=== PATIENT | male | born 1985 | race Caucasian/White ===

== ENCOUNTER 2017-12-16 01:04 | Inpatient (IN) | payer SELFPAY ==
[2017-12-16] MEDS ORDERED: NORMAL SALINE 1000 ML 1,000 ML IV PRN (01:26)
[2017-12-16] MEDS ORDERED: MIDAZOLAM 2 MG/2 ML INJ IV ONE (01:26)
[2017-12-16] MEDS ORDERED: HALOPERIDOL LACTATE INJ 5 MG/1 ML VIAL IM ONE (01:27)
[2017-12-16] MEDS ORDERED: LORAZEPAM INJ 2 MG/1 ML VIAL IV ONE ×2 (01:27→01:47)
[2017-12-16] MEDS ORDERED: DIPHENHYDRAMINE HCL 50 MG/ML VIAL IV ONE (01:27)
[2017-12-16] MEDS ORDERED: ETOMIDATE INJ/PF 20 MG/10 ML SDV IV ONE (01:29)
[2017-12-16 01:32] LABS: ABSOLUTE BASOPHILS # (AUTO) 0.1 10^3/uL (0.0-0.2); ABSOLUTE EOSINOPHILS # (AUTO) 0.1 10^3/uL (0.0-0.6); ABSOLUTE LYMPHOCYTES (AUTO) 2.7 10^3/uL (0.5-4.7); ABSOLUTE MONOCYTES (AUTO) 0.5 10^3/uL (0.1-1.4); BASOPHILS % (AUTO) 0.9 % (0-2); EOSINOPHILS % (AUTO) 0.6 % (0-6); HEMATOCRIT 45.3 % (37.9-51.0); HEMOGLOBIN 15.6 g/dL (13.5-17.0); LYMPHOCYTES % (AUTO) 32.7 % (13-45); MEAN CORPUSCULAR HEMOGLOBIN 31.7 pg (27.0-33.4); MEAN CORPUSCULAR HGB CONC 34.4 g/dL (32.0-36.0); MEAN CORPUSCULAR VOLUME 92 fl (80-97); MONOCYTES % (AUTO) 6.5 % (3-13); PLATELET COUNT 246 10^3/uL (150-450); RED BLOOD COUNT 4.91 10^6/uL (4.35-5.55); SEGMENTED NEUTROPHILS % (AUTO) 59.3 % (42-78); TOTAL CELLS COUNTED % (AUTO) 100 %; WHITE BLOOD COUNT 8.4 10^3/uL (4.0-10.5)
[2017-12-16] MEDS ORDERED: PROPOFOL 1,000 MG/100 ML INFUS..BTL IV PRN (01:36)
[2017-12-16] MEDS ORDERED: PROPOFOL 1,000 MG/100 ML INFUS..BTL IV ONE (01:41)
[2017-12-16 01:57] LABS: ALANINE AMINOTRANSFERASE 82 U/L (21-72); ALBUMIN 4.6 g/dL (3.5-5.0); ALCOHOL 64 mg/dL (NONE DETECTED); ALKALINE PHOSPHATASE 56 U/L (38-126); ANION GAP 16 (5-19); ASPARTATE AMINO TRANSFERASE 63 U/L (17-59); BILIRUBIN,DIRECT 0.3 mg/dL (0.0-0.4); BILIRUBIN,TOTAL 0.3 mg/dL (0.2-1.3); BLOOD UREA NITROGEN 16 mg/dL (7-20); CALCIUM 9.4 mg/dL (8.4-10.2); CARBON DIOXIDE 22 mmol/L (22-30); CHLORIDE 111 mmol/L (98-107); GLUCOSE 159 mg/dL (75-110); POTASSIUM 3.9 mmol/L (3.6-5.0); SODIUM 149.3 mmol/L (137-145); TOTAL PROTEIN 8.3 g/dL (6.3-8.2)
[2017-12-16 01:59] LABS: ACETAMINOPHEN < 10 ug/mL (10-30); SALICYLATE < 1.0 mg/dL (2.0-20.0)
[2017-12-16 02:04] LABS: ARTERIAL BLOOD BASE EXCESS -24.2 mmol/L; ARTERIAL BLOOD H2CO3 1.96 mmol/L (1.05-1.35); ARTERIAL BLOOD HCO3 10.9 mmol/L (20-26); ARTERIAL BLOOD O2 SATURATION 95.7 % (94-98); ARTERIAL BLOOD PCO2 65.1 mmHg (35-45); ARTERIAL BLOOD TOTAL CO2 12.9 mmol/L (23-27)
[2017-12-16 02:13] LABS: ARTERIAL BLOOD FIO2 40%
[2017-12-16 02:14] LABS: ARTERIAL BLOOD PH 6.84 (7.35-7.45)
[2017-12-16] MEDS ORDERED: SODIUM BICARBONATE 8.4% INJ 50 MEQ/50 ML DISP.SYRIN IV ONE (02:18)
[2017-12-16] MEDS ORDERED: RINGERS SOLUTION,LACTATED 1,000 ML IV ONE (02:19)
[2017-12-16] MEDS ORDERED: DEXTROSE 5%-WATER 1000 ML 1,000 ML with SODIUM BICARBONATE 150 MEQ IV PRN ×2 (02:19)
--- NOTE | 2017-12-16 02:19 | RADIOLOGY REPORT (SQ) ---
EXAM DESCRIPTION: XR CHEST 1 VIEW COMPLETED DATE/TME: 12/16/2017 01:35 CLINICAL HISTORY: 32 years Male, ams COMPARISON: None. NUMBER OF VIEWS/TECHNIQUE: 1/AP FINDINGS: Adequate lung volume, clear parenchyma, normal cardiac silhouette, endotracheal tube tip is 6.2 cm from the monie, likely adequate enteric tube obscured at its tip, and intact bony thorax. IMPRESSION: No acute cardiopulmonary findings.
--- NOTE | 2017-12-16 02:21 | RADIOLOGY REPORT (SQ) ---
EXAM DESCRIPTION: CT HEAD WITHOUT IV CONTRAST COMPLETED DATE/TME: 12/16/2017 01:35 CLINICAL HISTORY: 32 years Male, ams COMPARISON: None. TECHNIQUE: No contrast. Coronal and sagittal reformat. This exam was performed according to our departmental dose-optimization program, which includes automated exposure control, adjustment of the mA and/or kV according to patient size and/or use of iterative reconstruction technique. FINDINGS: No hemorrhage or infarct. No mass, mass effect, or midline shift. Endotracheal and enteric tubes partially imaged. Brain and extra-axial structures appear otherwise intact. IMPRESSION: No acute findings.
[2017-12-16 02:49] LABS: APPEARANCE,URINE CLEAR; BILIRUBIN,URINE NEGATIVE (NEGATIVE); COLOR,URINE STRAW; GLUCOSE, URINE NEGATIVE (NEGATIVE); KETONES,URINE NEGATIVE (NEGATIVE); LEUKOCYTE ESTERASE,URINE NEGATIVE (NEGATIVE); NITRITE,URINE NEGATIVE (NEGATIVE); PROTEIN,URINE 30 mg/dL (NEGATIVE); URINE SPECIFIC GRAVITY 1.009; UROBILINOGEN,URINE NEGATIVE mg/dL (<2.0)
[2017-12-16 03:02] LABS: URINE AMPHETAMINES SCREEN NEGATIVE; URINE BARBITURATES SCREEN NEGATIVE; URINE BENZODIAZEPINES SCREEN UNCONFIRMED POSITIVE; URINE COCAINE SCREEN UNCONFIRMED POSITIVE; URINE MARIJUANA (THC) SCREEN NEGATIVE; URINE METHADONE SCREEN NEGATIVE; URINE PHENCYCLIDINE SCREEN NEGATIVE
--- NOTE | 2017-12-16 04:09 | ER Document Report ---
ED General - General Stated Complaint: UNRESPONSIVE Time Seen by Provider: 12/16/17 01:07 - HPI Patient complains to provider of: Unresponsive Notes: Patient coming in unresponsive patient was found local hotel lying flat on concrete initially thought to be an overdose patient had a low respiratory rate 20 minutes of arrival please give patient 2 mg of Narcan with minimal improvement patient received another 4 total by EMS prior to his arrival here to the emergency room respiratory rate did increase upon entering the emergency room patient was placed in trauma room #1 patient initially was having some shaking and possibly discordant posturing turning his hands turning in his legs this is very intermittent. Otherwise most of the HPI is unobtainable as the patient mental responsiveness. During initial evaluation patient all of a sudden became more awake screaming and yelling having to be restrained by most of the security staff and ER staff. - Related Data Allergies/Adverse Reactions: No Known Allergies Allergy (Verified 12/15/12 08:06) Past Medical History - Social History Smoking Status: Unknown if Ever Smoked Family History: Reviewed & Not Pertinent Psychiatric Medical History: Reports: Hx Anxiety, Hx Depression - Immunizations Hx Diphtheria, Pertussis, Tetanus Vaccination: Yes Review of Systems - Review of Systems -: Yes ROS unobtainable due to patient's medical condition - Unresponsive Physical Exam - Vital signs Vitals: Pulse Resp BP Pulse Ox 122 H 20 148/95 H 97 12/16/17 01:04 12/16/17 01:04 12/16/17 01:04 12/16/17 01:04 Interpretation: Normal - General General appearance: Unresponsive - Initially - HEENT Head: Normocephalic, Atraumatic Eyes: Normal Pupils: Pinpoint - Respiratory Respiratory status: No respiratory distress Chest status: Nontender Breath sounds: Normal Chest palpation: Normal - Cardiovascular Rhythm: Regular Heart sounds: Normal auscultation Murmur: No - Abdominal Inspection: Normal Distension: No distension Bowel sounds: Normal Tenderness: Nontender Organomegaly: No organomegaly - Back Back: Normal, Nontender - Extremities General upper extremity: Normal inspection, Nontender, Normal color, Normal ROM General lower extremity: Normal inspection, Nontender, Normal color, Normal ROM , Normal temperature - Neurological Neuro grossly intact: Yes Dolly Coma Scale Eye Opening: Spontaneous Hamilton Coma Scale Verbal: Inappropriate Hamilton Coma Scale Motor: Withdraws to Pain Dolly Coma Scale Total: 11 Motor strength normal: LUE, RUE, LLE, RLE - Skin Skin Temperature: Warm Skin Moisture: Dry Skin Color: Normal Course - Re-evaluation Re-evalutation: 12/16/17 06:14 Patient initially came to the ER unresponsive receiving Narcan during the initial assessment patient had some posturing will be this cortical posturing. Patient then progressed to agitation screaming requiring most of the security staff to hold the patient down patient was given IV Ativan IV Benadryl and IM Haldol with no effect and was was given for Versed for Versed we were able to apply restraints to the patient he will restraints in addition to of Ativan patient continued to roll around the bed agitated we were unable to obtain vital signs because of his agitation because the patient receiving Narcan because of his aggression posturing initially being found on the floor did feel the need to go ahead and secure the patient's airway resuscitate him and controlled situation so that appropriate medical treatment could be performed. Head CT was performed is otherwise negative. Patient tachycardia and agitation improved after intubation and sedation with propofol. Laboratory results showed positive for opiates and benzos which we did give the patient and cocaine. Reviewed patient's past medical history does show another previous overdose with IV injection of cocaine. Possible etiology for the patient's symptoms initial blood gas this shows significant acidosis however at the vent management acidosis has improved. Patient was placed in ICU for polysubstance overdose - Vital Signs Vital signs: Temp Pulse Resp BP Pulse Ox 98.4 F 154 H 18 111/78 99 12/16/17 05:01 12/16/17 01:31 12/16/17 05:01 12/16/17 05:01 12/16/17 05:01 - Laboratory Result Diagrams: 12/16/17 01:15 12/16/17 01:15 Laboratory results interpreted by me: 12/16/17 12/16/17 12/16/17 01:15 01:15 01:15 Carbonic Acid ABG pH ABG pCO2 ABG pO2 ABG HCO3 ABG Total CO2 Sodium 149.3 H Chloride 111 H Glucose 159 H Lactic Acid 3.3 H AST 63 H ALT 82 H Creatine Kinase 209 H Total Protein 8.3 H Urine Protein Urine Blood Salicylates < 1.0 L Acetaminophen < 10 L 12/16/17 12/16/17 01:55 02:25 Carbonic Acid 1.96 H ABG pH 6.84 L* ABG pCO2 65.1 H ABG pO2 136.0 H ABG HCO3 10.9 L ABG Total CO2 12.9 L Sodium Chloride Glucose Lactic Acid AST ALT Creatine Kinase Total Protein Urine Protein 30 H Urine Blood MODERATE H Salicylates Acetaminophen Procedures - Intubation Orotracheal Airway evaluation: Normal anatomy Mallampati Classification: Class 2 Medications: Etomidate, Other - Rocuronium Blade size: 3 Equipment used: Glidescope ETT size: 8.0 ETT secured at: Lips ETT secured at (cm): 22 Breath Sounds after Intubation: Equal End tidal CO2 confirmed: Yes Ventilator settings: SIMV Tidal volume: 400 FiO2: 100 Respirations: 18 PEEP: 5 Post Intubation Xray: Yes Critical Care Note - Critical Care Note Total time excluding time spent on procedures (mins): 50 Comments: Time spent in evaluation of the patient discussing with admitting facility/ physician Discharge - Discharge Clinical Impression: Respiratory acidosis Polysubstance overdose Qualifiers: Encounter type: initial encounter Injury intent: undetermined intent Qualified Code(s): T50.904A - Poisoning by unspecified drugs, medicaments and biological substances, undetermined, initial encounter Condition: Good Disposition: ADMITTED INPATIENT Admitting Provider: Hospitalist [facility] Unit Admitted: ICU
[2017-12-16 04:23] LABS: ARTERIAL BLOOD BASE EXCESS -3.1 mmol/L; ARTERIAL BLOOD H2CO3 1.22 mmol/L (1.05-1.35); ARTERIAL BLOOD HCO3 22.1 mmol/L (20-26); ARTERIAL BLOOD O2 SATURATION 98.4 % (94-98); ARTERIAL BLOOD PCO2 40.4 mmHg (35-45); ARTERIAL BLOOD PH 7.36 (7.35-7.45); ARTERIAL BLOOD PO2 127.9 mmHg (80-100); ARTERIAL BLOOD TOTAL CO2 23.3 mmol/L (23-27)
[2017-12-16 04:26] LABS: ARTERIAL BLOOD FIO2 30%
[2017-12-16] MEDS ORDERED: ACETAMINOPHEN 325 MG TABLET NG PRN (04:50)
[2017-12-16] MEDS ORDERED: IPRATROPIUM/ALBUTEROL 0.5-2.5 MG/3 ML AMPUL NEB PRN (04:50)
--- NOTE | 2017-12-16 06:50 | PDOC H&P ---
History of Present Illness Admission Date/PCP: 12/16/17 04:15 NO LOCALMD Patient complains of: Unresponsive History of Present Illness: YAYA WILL is a 32 year old male with a past medical history of IV, polysubstance abuse. Patient presents after being found in a local hotel lying flat on the concrete initially unresponsive receiving a total of 6 mg of Narcan. Patient became combative requiring sedation and intubation. Labs reveal lactic acidosis, no historian available for additional history of the present illness. Past Medical History Medical History: Other - Polysubstance abuse otherwise unknown Psychiatric Medical History: Reports: Depression Past Surgical History Past Surgical History: Reports: None Social History Information Source: [facility] Records Smoking Status: Unknown if Ever Smoked Drugs: Cocaine, Heroin, Methadone, Other - Benzodiazepine - Advance Directive Resuscitation Status: Full Code Family History Family History: Other - Unobtainable Parental Family History Reviewed: No - Unobtainable Children Family History Reviewed: No - Unobtainable Sibling(s) Family History Reviewed.: No - Unobtainable Medication/Allergy Home Medications: Methadone HCl 20 mg PO DAILY 12/15/12 Allergies/Adverse Reactions: No Known Allergies Allergy (Verified 12/15/12 08:06) Review of Systems ROS unobtainable: Due to mental status Physical Exam Vital Signs: Temp Pulse Resp BP Pulse Ox 97.7 F 82 18 116/78 100 12/16/17 06:15 12/16/17 06:15 12/16/17 06:15 12/16/17 06:15 12/16/17 06:15 Intake & Output 12/14/17 12/15/17 12/16/17 11:59 11:59 11:59 Weight 79 kg General appearance: PRESENT: no acute distress - Intubated and sedated Head exam: PRESENT: atraumatic, normocephalic Eye exam: PRESENT: conjunctiva pink, EOMI, PERRLA. ABSENT: scleral icterus Ear exam: PRESENT: normal external ear exam Mouth exam: PRESENT: moist, tongue midline Neck exam: ABSENT: carotid bruit, JVD, lymphadenopathy, thyromegaly Respiratory exam: PRESENT: crackles, symmetrical. ABSENT: chest wall tenderness , prolonged expiratory phas Cardiovascular exam: PRESENT: RRR. ABSENT: diastolic murmur, rubs, systolic murmur Pulses: PRESENT: normal dorsalis pedis pul Vascular exam: PRESENT: normal capillary refill GI/Abdominal exam: PRESENT: normal bowel sounds, soft. ABSENT: distended, guarding, mass, organolmegaly, rebound, tenderness Rectal exam: PRESENT: deferred Extremities exam: PRESENT: full ROM. ABSENT: calf tenderness, clubbing, pedal edema Neurological exam: PRESENT: CN II-XII grossly intact, other - Intubated and sedated. ABSENT: motor sensory deficit Psychiatric exam: PRESENT: other - Intubated and sedated Skin exam: PRESENT: dry, intact, warm. ABSENT: cyanosis, rash Results Impressions: Chest X-Ray 12/16/17 01:35 IMPRESSION: No acute cardiopulmonary findings. Head CT 12/16/17 01:35 IMPRESSION: No acute findings. Assessment & Plan - Diagnosis (1) Polysubstance overdose Qualifiers: Encounter type: initial encounter Injury intent: undetermined intent Qualified Code(s): T50.904A - Poisoning by unspecified drugs, medicaments and biological substances, undetermined, initial encounter Is this a current diagnosis for this admission?: Yes Plan: Supportive care, mental health consult (2) Respiratory acidosis Is this a current diagnosis for this admission?: Yes Plan: Secondary to #1, intubated for respiratory depression and airway protection. Follow-up ABG - Time Time Spent: 50 to 70 Minutes
[2017-12-16 06:54] LABS: ABSOLUTE LYMPHOCYTES (AUTO) 1.8 10^3/uL (0.5-4.7); ABSOLUTE MONOCYTES (AUTO) 1.1 10^3/uL (0.1-1.4); ABSOLUTE NEUT (AUTO) 8.6 10^3/uL (1.7-8.2); BASOPHILS % (AUTO) 0.3 % (0-2); EOSINOPHILS % (AUTO) 0.2 % (0-6); HEMATOCRIT 40.9 % (37.9-51.0); HEMOGLOBIN 13.9 g/dL (13.5-17.0); LYMPHOCYTES % (AUTO) 15.8 % (13-45); MEAN CORPUSCULAR HEMOGLOBIN 31.3 pg (27.0-33.4); MEAN CORPUSCULAR VOLUME 92 fl (80-97); MONOCYTES % (AUTO) 9.3 % (3-13); PLATELET COUNT 209 10^3/uL (150-450); RED BLOOD COUNT 4.45 10^6/uL (4.35-5.55); RED CELL DISTRIBUTION WIDTH 12.8 % (11.5-14.0); SEGMENTED NEUTROPHILS % (AUTO) 74.4 % (42-78); TOTAL CELLS COUNTED % (AUTO) 100 %; WHITE BLOOD COUNT 11.5 10^3/uL (4.0-10.5)
[2017-12-16 07:07] LABS: ANION GAP 7 (5-19); BLOOD UREA NITROGEN 16 mg/dL (7-20); CALCIUM 8.2 mg/dL (8.4-10.2); CARBON DIOXIDE 25 mmol/L (22-30); CHLORIDE 116 mmol/L (98-107); GLUCOSE 89 mg/dL (75-110); POTASSIUM 4.3 mmol/L (3.6-5.0); SODIUM 148.4 mmol/L (137-145)
[2017-12-16 07:14] LABS: CREATINE KINASE 2960 U/L (55-170)
[2017-12-16] MEDS: POTASSI CL 20 MEQ/D5-1/2NS 1L 1,000 ML IV PRN ×2 (08:43→14:06)
[2017-12-16] MEDS: HEPARIN SOD (PORCINE) 5,000 UNIT/ML 1 ML SYRINGE SUBCUT SCH ×3 (08:44→21:13)
--- NOTE | 2017-12-16 09:57 | EKG REPORT ---
SEVERITY:- ABNORMAL ECG - SINUS TACHYCARDIA PROBABLE LEFT ATRIAL ABNORMALITY RIGHT AXIS DEVIATION BORDERLINE PROLONGED QT INTERVAL : Confirmed by: Tye Morejon 16-Dec-2017 09:56:59
[2017-12-16] MEDS ORDERED: ROCURONIUM BROMIDE INJ 50 MG/5 ML VIAL IV ONE (10:37)
[2017-12-16] MEDS: PROPOFOL 1,000 MG/100 ML INFUS..BTL IV PRN ×3 (14:02→21:14)
[2017-12-16] MEDS: FENTANYL CITRATE INJ/PF 100 MCG/2 ML AMPUL IV PRN (21:14)
[2017-12-16] MEDS: RINGERS SOLUTION,LACTATED 1,000 ML IV PRN (21:15)
[2017-12-17] MEDS: RINGERS SOLUTION,LACTATED 1,000 ML IV PRN ×2 (00:20→05:42)
[2017-12-17] MEDS: PROPOFOL 1,000 MG/100 ML INFUS..BTL IV PRN ×5 (00:21→17:07)
[2017-12-17 03:53] LABS: ABSOLUTE EOSINOPHILS # (AUTO) 0.1 10^3/uL (0.0-0.6); ABSOLUTE LYMPHOCYTES (AUTO) 2.2 10^3/uL (0.5-4.7); ABSOLUTE MONOCYTES (AUTO) 0.8 10^3/uL (0.1-1.4); ABSOLUTE NEUT (AUTO) 4.5 10^3/uL (1.7-8.2); BASOPHILS % (AUTO) 0.4 % (0-2); EOSINOPHILS % (AUTO) 1.4 % (0-6); HEMOGLOBIN 13.2 g/dL (13.5-17.0); LYMPHOCYTES % (AUTO) 29.2 % (13-45); MEAN CORPUSCULAR HEMOGLOBIN 31.4 pg (27.0-33.4); MEAN CORPUSCULAR HGB CONC 33.9 g/dL (32.0-36.0); MEAN CORPUSCULAR VOLUME 92 fl (80-97); MONOCYTES % (AUTO) 10.6 % (3-13); PLATELET COUNT 184 10^3/uL (150-450); RED BLOOD COUNT 4.22 10^6/uL (4.35-5.55); RED CELL DISTRIBUTION WIDTH 13.4 % (11.5-14.0); SEGMENTED NEUTROPHILS % (AUTO) 58.4 % (42-78); TOTAL CELLS COUNTED % (AUTO) 100 %; WHITE BLOOD COUNT 7.7 10^3/uL (4.0-10.5)
[2017-12-17 04:33] LABS: BLOOD UREA NITROGEN 14 mg/dL (7-20); CALCIUM 8.2 mg/dL (8.4-10.2); GLUCOSE 86 mg/dL (75-110); POTASSIUM 4.1 mmol/L (3.6-5.0)
[2017-12-17 04:38] LABS: CARBON DIOXIDE 27 mmol/L (22-30); CHLORIDE 116 mmol/L (98-107); SODIUM 147.1 mmol/L (137-145)
[2017-12-17 04:42] LABS: ANION GAP 4 (5-19)
[2017-12-17] MEDS: HEPARIN SOD (PORCINE) 5,000 UNIT/ML 1 ML SYRINGE SUBCUT SCH ×2 (05:43→14:01)
[2017-12-17] MEDS: FENTANYL CITRATE INJ/PF 100 MCG/2 ML AMPUL IV PRN (08:04)
[2017-12-17 09:52] LABS: ARTERIAL BLOOD BASE EXCESS 0.1 mmol/L; ARTERIAL BLOOD FIO2 21%; ARTERIAL BLOOD H2CO3 1.27 mmol/L (1.05-1.35); ARTERIAL BLOOD HCO3 25.1 mmol/L (20-26); ARTERIAL BLOOD O2 SATURATION 96.9 % (94-98); ARTERIAL BLOOD PCO2 42.1 mmHg (35-45); ARTERIAL BLOOD PH 7.39 (7.35-7.45); ARTERIAL BLOOD PO2 91.4 mmHg (80-100); ARTERIAL BLOOD TOTAL CO2 26.4 mmol/L (23-27)
[2017-12-17] MEDS: DEXTROSE 5%-1/2 NORMAL SALINE 1,000 ML IV PRN ×3 (09:55→17:08)
[2017-12-17] MEDS: LORAZEPAM INJ 2 MG/1 ML VIAL IV PRN ×2 (09:55→18:52)
[2017-12-17] MEDS: DIAZEPAM 5 MG TABLET PO SCH ×2 (11:06→17:07)
--- NOTE | 2017-12-17 17:24 | PDOC PROGRESS REPORT ---
Subjective Progress Note for:: 12/17/17 - seen on around this morning with nursing Subjective:: vented- on sedation spoke with ICU nurse team- patient has been more agitated requiring more propfol - otherwise no other complaints Reason For Visit: ACUTE RESP FAILURE, ENCEPHALOPATHY POLYSUBSTANCE Physical Exam Vital Signs: Temp Pulse Resp BP Pulse Ox 98.8 F 75 14 119/84 95 12/17/17 08:00 12/17/17 08:00 12/17/17 08:00 12/17/17 08:00 12/17/17 08:24 Intake & Output 12/16/17 12/17/17 12/18/17 06:59 06:59 06:59 Intake Total 5519 Output Total 600 1930 90 Balance -600 3589 -90 Weight 174 lb 2.643 oz 180 lb 1.883 oz General appearance: PRESENT: no acute distress, other - intubated Head exam: PRESENT: atraumatic, normocephalic Eye exam: ABSENT: conjunctival injection - PERRL Mouth exam: PRESENT: tongue midline Throat exam: ABSENT: tonsillar exudate Neck exam: ABSENT: tracheal deviation Respiratory exam: PRESENT: rhonchi - occasional rhonchi bilaterally, symmetrical. ABSENT: wheezes Cardiovascular exam: PRESENT: RRR, +S1, +S2 Pulses: PRESENT: +2 pedal pulses bilateral Vascular exam: PRESENT: normal capillary refill GI/Abdominal exam: PRESENT: normal bowel sounds, soft. ABSENT: guarding Extremities exam: ABSENT: joint swelling, pedal edema Musculoskeletal exam: PRESENT: other - sedated- unable to perform exam- no skin changes noted Neurological exam: PRESENT: other - sedated- unresponsive Skin exam: PRESENT: dry, warm, other - skin tattoos noted Results Laboratory Results: 12/17/17 03:43 12/17/17 03:43 12/16/17 12/17/17 12/17/17 10:34 03:43 03:43 WBC 7.7 RBC 4.22 L Hgb 13.2 L Hct 39.0 MCV 92 MCH 31.4 MCHC 33.9 RDW 13.4 Plt Count 184 Seg Neutrophils % 58.4 Lymphocytes % 29.2 Monocytes % 10.6 Eosinophils % 1.4 Basophils % 0.4 Absolute Neutrophils 4.5 Absolute Lymphocytes 2.2 Absolute Monocytes 0.8 Absolute Eosinophils 0.1 Absolute Basophils 0.0 Sodium 147.1 H Potassium 4.1 Chloride 116 H Carbon Dioxide 27 Anion Gap 4 L BUN 14 Creatinine 1.02 Est GFR ( Amer) > 60 Est GFR (Non-Af Amer) > 60 Glucose 86 Calcium 8.2 L Triglycerides 85 12/16/17 12/16/17 12/16/17 06:39 10:54 17:00 Creatine Kinase 2960 H 58192 H 60700 H Impressions: Chest X-Ray 12/16/17 01:35 IMPRESSION: No acute cardiopulmonary findings. Head CT 12/16/17 01:35 IMPRESSION: No acute findings. Assessment & Plan - Diagnosis (1) Acute respiratory failure Qualifiers: Respiratory failure complication: hypoxia and hypercapnia Qualified Code(s) : J96.01 - Acute respiratory failure with hypoxia; J96.02 - Acute respiratory failure with hypercapnia; J96.02 - Acute respiratory failure with hypercapnia; J96.02 - Acute respiratory failure with hypercapnia Is this a current diagnosis for this admission?: Yes Plan: VDRF- ventilator dependent- due to respiratory failure 2/2 polysubstance abuse and acidosis. Initiate VAP protocols. keep bed elevated 3-45 deg, daily assessment to extubate, Gi and DVT prophylaxis. Wean off vent when ready. I will consult our investigator fraud for his assistance- appreciate consult (2) Ventilator dependent Is this a current diagnosis for this admission?: Yes Plan: see plan above (3) Polysubstance overdose Qualifiers: Encounter type: initial encounter Injury intent: undetermined intent Qualified Code(s): T50.904A - Poisoning by unspecified drugs, medicaments and biological substances, undetermined, initial encounter Is this a current diagnosis for this admission?: Yes Plan: will need outpatient therapy/counseling/rehab upon discharge (4) Respiratory acidosis Is this a current diagnosis for this admission?: Yes Plan: Ventilator dependent- see plan above (5) Rhabdomyolysis Is this a current diagnosis for this admission?: Yes Plan: CPK climbing- will switch to D5 1/2 NS @250 cc/hr- he has good UOP- monitor and repeat CPK in AM. likely 2/2 to fall. Cr normal- will monitor (6) Alcohol dependence with withdrawal Is this a current diagnosis for this admission?: Yes Plan: he has been agitated even with propofol- will start on Valium Q6 via NGT- will taper slowly. Ativan for seizure/anxiety. Seizure precautions - Time Time Spent with patient: 35 or more minutes Total Critical Time (Minutes): 50 Medications reviewed and adjusted accordingly: Yes Anticipated discharge: Home Within: Other - on going care- no d/c plans yet - Plan Summary Plan Summary: wean off ventilation - likely in AM I spent greater than 50 minutes in critical time care today for this severely ill patient. more than 50% of my time was spent coordinating care.
[2017-12-17 17:43] LABS: CHLAM PCR NOT DETECTED (NOT DETECT); GON PCR NOT DETECTED (NOT DETECT)
--- NOTE | 2017-12-17 17:59 | PDOC CONSULTATION ---
Consultation Consult Date: 12/17/17 Attending physician:: JORDAN ATKINSON Consult reason:: resp failure History of Present Illness Admission Date/PCP: 12/16/17 04:15 NO LOCALMD History of Present Illness: YAYA WILL is a 32 year old male hx of drug abuse foung d in [facility] unresponsive responded to narcan briefly but was later intubates now in ICU intubated and sedated Past Medical History Psychiatric Medical History: Reports: Depression Social History Smoking Status: Unknown if Ever Smoked Hx Recreational Drug Use: Yes - see toxicology Drugs: Cocaine, Heroin, Methadone, Other - Benzodiazepine Hx Prescription Drug Abuse: No - unknown - Advance Directive Resuscitation Status: Full Code Family History Family History: Other - Unobtainable Parental Family History Reviewed: No Children Family History Reviewed: No Sibling(s) Family History Reviewed.: No Medication/Allergy Home Medications: Unobtainable [Unobtainable] 12/16/17 Allergies/Adverse Reactions: No Known Allergies Allergy (Verified 12/15/12 08:06) Review of Systems ROS unobtainable: Due to endotracheal tube, Due to mental status Physical Exam Vital Signs: Temp Pulse Resp BP Pulse Ox 98.8 F 74 14 110/61 95 12/17/17 08:00 12/17/17 10:00 12/17/17 10:00 12/17/17 09:57 12/17/17 10:00 Intake & Output 12/16/17 12/17/17 12/18/17 06:59 06:59 06:59 Intake Total 5519 Output Total 600 1930 270 Balance -600 3589 -270 Weight 79 kg 81.7 kg General appearance: PRESENT: no acute distress, disheveled, well-developed, well -nourished. ABSENT: cooperative Head exam: PRESENT: atraumatic, normocephalic Eye exam: PRESENT: conjunctiva pale. ABSENT: nystagmus, periorbital swelling, scleral icterus Mouth exam: PRESENT: dry mucosa, neck supple, tongue midline, other - ET tube Neck exam: ABSENT: carotid bruit, JVD, lymphadenopathy, thyromegaly, tracheal deviation, tracheostomy Respiratory exam: PRESENT: decreased breath sounds, prolonged expiratory phas, rales, rhonchi, unlabored. ABSENT: retraction, stridor Cardiovascular exam: PRESENT: RRR, +S1, +S2 Pulses: PRESENT: normal radial pulses GI/Abdominal exam: PRESENT: hypoactive bowel sounds, soft Gentrourinary exam: PRESENT: indwelling catheter Extremities exam: ABSENT: clubbing, joint swelling, pedal edema Musculoskeletal exam: ABSENT: ambulatory, deformity, dislocation Neurological exam: ABSENT: awake Skin exam: PRESENT: dry, warm Results Laboratory Results: 12/17/17 03:43 12/17/17 03:43 12/16/17 12/17/17 12/17/17 10:34 03:43 03:43 WBC 7.7 RBC 4.22 L Hgb 13.2 L Hct 39.0 MCV 92 MCH 31.4 MCHC 33.9 RDW 13.4 Plt Count 184 Seg Neutrophils % 58.4 Lymphocytes % 29.2 Monocytes % 10.6 Eosinophils % 1.4 Basophils % 0.4 Absolute Neutrophils 4.5 Absolute Lymphocytes 2.2 Absolute Monocytes 0.8 Absolute Eosinophils 0.1 Absolute Basophils 0.0 Carbonic Acid HCO3/H2CO3 Ratio ABG pH ABG pCO2 ABG pO2 ABG HCO3 ABG O2 Saturation ABG Base Excess FiO2 Sodium 147.1 H Potassium 4.1 Chloride 116 H Carbon Dioxide 27 Anion Gap 4 L BUN 14 Creatinine 1.02 Est GFR ( Amer) > 60 Est GFR (Non-Af Amer) > 60 Glucose 86 Calcium 8.2 L Triglycerides 85 12/17/17 09:20 WBC RBC Hgb Hct MCV MCH MCHC RDW Plt Count Seg Neutrophils % Lymphocytes % Monocytes % Eosinophils % Basophils % Absolute Neutrophils Absolute Lymphocytes Absolute Monocytes Absolute Eosinophils Absolute Basophils Carbonic Acid 1.27 HCO3/H2CO3 Ratio 19:1 ABG pH 7.39 ABG pCO2 42.1 ABG pO2 91.4 ABG HCO3 25.1 ABG O2 Saturation 96.9 ABG Base Excess 0.1 FiO2 21% Sodium Potassium Chloride Carbon Dioxide Anion Gap BUN Creatinine Est GFR ( Amer) Est GFR (Non-Af Amer) Glucose Calcium Triglycerides 12/16/17 12/16/17 12/16/17 06:39 10:54 17:00 Creatine Kinase 2960 H 11598 H 07718 H Troponin I 12/17/17 09:41 Creatine Kinase Troponin I < 0.012 Impressions: Chest X-Ray 12/16/17 01:35 IMPRESSION: No acute cardiopulmonary findings. Head CT 12/16/17 01:35 IMPRESSION: No acute findings. Assessment & Plan - Diagnosis (1) Acute respiratory failure Qualifiers: Respiratory failure complication: hypoxia and hypercapnia Qualified Code(s) : J96.01 - Acute respiratory failure with hypoxia; J96.02 - Acute respiratory failure with hypercapnia; J96.02 - Acute respiratory failure with hypercapnia; J96.02 - Acute respiratory failure with hypercapnia Is this a current diagnosis for this admission?: Yes Plan: ventilate/oxygenate as needed (2) Alcohol dependence with withdrawal Is this a current diagnosis for this admission?: Yes Plan: DT precautions (3) Polysubstance overdose Qualifiers: Encounter type: initial encounter Injury intent: undetermined intent Qualified Code(s): T50.904A - Poisoning by unspecified drugs, medicaments and biological substances, undetermined, initial encounter Is this a current diagnosis for this admission?: Yes (4) Rhabdomyolysis Is this a current diagnosis for this admission?: Yes Plan: push ivf as tolerated - Time Total Critical Time (Minutes): 50
[2017-12-18] MEDS: HEPARIN SOD (PORCINE) 5,000 UNIT/ML 1 ML SYRINGE SUBCUT SCH ×4 (00:09→21:11)
[2017-12-18] MEDS: DIAZEPAM 5 MG TABLET PO SCH ×3 (00:10→13:17)
[2017-12-18] MEDS: PROPOFOL 1,000 MG/100 ML INFUS..BTL IV PRN ×6 (00:10→23:21)
[2017-12-18] MEDS: DEXTROSE 5%-1/2 NORMAL SALINE 1,000 ML IV PRN ×4 (00:11→15:57)
[2017-12-18 04:31] LABS: ABSOLUTE EOSINOPHILS # (AUTO) 0.2 10^3/uL (0.0-0.6); ABSOLUTE LYMPHOCYTES (AUTO) 1.6 10^3/uL (0.5-4.7); ABSOLUTE MONOCYTES (AUTO) 0.6 10^3/uL (0.1-1.4); ABSOLUTE NEUT (AUTO) 3.8 10^3/uL (1.7-8.2); BASOPHILS % (AUTO) 0.4 % (0-2); EOSINOPHILS % (AUTO) 2.5 % (0-6); HEMATOCRIT 40.2 % (37.9-51.0); HEMOGLOBIN 13.8 g/dL (13.5-17.0); LYMPHOCYTES % (AUTO) 25.7 % (13-45); MEAN CORPUSCULAR HEMOGLOBIN 31.8 pg (27.0-33.4); MEAN CORPUSCULAR HGB CONC 34.3 g/dL (32.0-36.0); MEAN CORPUSCULAR VOLUME 93 fl (80-97); MONOCYTES % (AUTO) 9.5 % (3-13); PLATELET COUNT 174 10^3/uL (150-450); RED BLOOD COUNT 4.34 10^6/uL (4.35-5.55); RED CELL DISTRIBUTION WIDTH 13.3 % (11.5-14.0); SEGMENTED NEUTROPHILS % (AUTO) 61.9 % (42-78); TOTAL CELLS COUNTED % (AUTO) 100 %; WHITE BLOOD COUNT 6.1 10^3/uL (4.0-10.5)
[2017-12-18 04:56] LABS: ANION GAP 5 (5-19); BLOOD UREA NITROGEN 5 mg/dL (7-20); CALCIUM 8.2 mg/dL (8.4-10.2); CARBON DIOXIDE 26 mmol/L (22-30); CHLORIDE 114 mmol/L (98-107); GLUCOSE 119 mg/dL (75-110); PHOSPHORUS 2.6 mg/dL (2.5-4.5); POTASSIUM 3.9 mmol/L (3.6-5.0); SODIUM 144.8 mmol/L (137-145)
[2017-12-18 05:17] LABS: CREATINE KINASE 4483 U/L (55-170)
[2017-12-18 06:08] LABS: ARTERIAL BLOOD BASE EXCESS -1.1 mmol/L; ARTERIAL BLOOD H2CO3 1.21 mmol/L (1.05-1.35); ARTERIAL BLOOD HCO3 23.7 mmol/L (20-26); ARTERIAL BLOOD O2 SATURATION 95.5 % (94-98); ARTERIAL BLOOD PCO2 40.3 mmHg (35-45); ARTERIAL BLOOD PH 7.39 (7.35-7.45); ARTERIAL BLOOD PO2 78.1 mmHg (80-100)
[2017-12-18 06:09] LABS: ARTERIAL BLOOD FIO2 21%
[2017-12-18] MEDS: FENTANYL CITRATE INJ/PF 100 MCG/2 ML AMPUL IV PRN ×2 (08:23→18:29)
--- NOTE | 2017-12-18 08:56 | RADIOLOGY REPORT (SQ) ---
EXAM DESCRIPTION: CHEST SINGLE VIEW COMPLETED DATE/TIME: 12/18/2017 6:46 am REASON FOR STUDY: VDRF COMPARISON: None. EXAM PARAMETERS: NUMBER OF VIEWS: One view. TECHNIQUE: Single frontal radiographic view of the chest acquired. RADIATION DOSE: NA LIMITATIONS: None. FINDINGS: LUNGS AND PLEURA: No opacities, masses or pneumothorax. No pleural effusion. MEDIASTINUM AND HILAR STRUCTURES: No masses. Contour normal. HEART AND VASCULAR STRUCTURES: The heart is normal. The pulmonary vasculature is normal. BONES: No acute findings. HARDWARE: None in the chest. OTHER: Endotracheal tube above monie. NG tube overlying stomach. IMPRESSION: NO ACUTE DISEASE. TECHNICAL DOCUMENTATION: JOB ID: [id number] [employer]- All Rights Reserved Reading location - IP/workstation name: [email or web address]
[2017-12-18] MEDS: PANTOPRAZOLE SODIUM 40 MG VIAL IV SCH (10:17)
[2017-12-18] MEDS: LORAZEPAM INJ 2 MG/1 ML VIAL IV PRN ×2 (10:18→18:13)
--- NOTE | 2017-12-18 11:26 | PDOC PROGRESS REPORT ---
Subjective Progress Note for:: 12/18/17 Subjective:: Patient very combative during sedation vacation did not respond to commands Reason For Visit: ACUTE RESP FAILURE, ENCEPHALOPATHY POLYSUBSTANCE Physical Exam Vital Signs: Temp Pulse Resp BP Pulse Ox 98.2 F 68 0 L 127/84 H 97 12/18/17 05:59 12/17/17 22:00 12/18/17 05:59 12/18/17 05:59 12/18/17 06:00 Intake & Output 12/17/17 12/18/17 12/19/17 06:59 06:59 06:59 Intake Total 5519 6047 Output Total 1930 4240 Balance 3589 2237 Weight 81.7 kg 83.6 kg General appearance: PRESENT: no acute distress, disheveled, well-developed, well -nourished. ABSENT: cooperative Head exam: PRESENT: atraumatic, normocephalic Eye exam: PRESENT: conjunctiva pale, EOMI. ABSENT: nystagmus, periorbital swelling, scleral icterus Mouth exam: PRESENT: dry mucosa, neck supple, tongue midline, other - ET tube in Neck exam: ABSENT: carotid bruit, JVD, lymphadenopathy, thyromegaly, tracheal deviation, tracheostomy Respiratory exam: PRESENT: decreased breath sounds, prolonged expiratory phas, rhonchi, unlabored, wheezes. ABSENT: rales, retraction, stridor Cardiovascular exam: PRESENT: RRR, +S1, +S2 Pulses: PRESENT: normal radial pulses GI/Abdominal exam: PRESENT: hypoactive bowel sounds, soft Gentrourinary exam: PRESENT: indwelling catheter Extremities exam: ABSENT: clubbing, joint swelling Musculoskeletal exam: ABSENT: deformity, dislocation Neurological exam: PRESENT: altered. ABSENT: oriented to person, oriented to place, oriented to time, oriented to situation Psychiatric exam: PRESENT: agitated Skin exam: PRESENT: dry, warm Results Laboratory Results: 12/18/17 04:20 12/18/17 04:20 12/17/17 12/18/17 12/18/17 09:20 04:20 04:20 WBC 6.1 RBC 4.34 L Hgb 13.8 Hct 40.2 MCV 93 MCH 31.8 MCHC 34.3 RDW 13.3 Plt Count 174 Seg Neutrophils % 61.9 Lymphocytes % 25.7 Monocytes % 9.5 Eosinophils % 2.5 Basophils % 0.4 Absolute Neutrophils 3.8 Absolute Lymphocytes 1.6 Absolute Monocytes 0.6 Absolute Eosinophils 0.2 Absolute Basophils 0.0 Carbonic Acid 1.27 HCO3/H2CO3 Ratio 19:1 ABG pH 7.39 ABG pCO2 42.1 ABG pO2 91.4 ABG HCO3 25.1 ABG O2 Saturation 96.9 ABG Base Excess 0.1 FiO2 21% Sodium 144.8 Potassium 3.9 Chloride 114 H Carbon Dioxide 26 Anion Gap 5 BUN 5 L Creatinine 0.78 Est GFR ( Amer) > 60 Est GFR (Non-Af Amer) > 60 Glucose 119 H Calcium 8.2 L Phosphorus 2.6 Magnesium 2.3 12/18/17 05:45 WBC RBC Hgb Hct MCV MCH MCHC RDW Plt Count Seg Neutrophils % Lymphocytes % Monocytes % Eosinophils % Basophils % Absolute Neutrophils Absolute Lymphocytes Absolute Monocytes Absolute Eosinophils Absolute Basophils Carbonic Acid 1.21 HCO3/H2CO3 Ratio 19:1 ABG pH 7.39 ABG pCO2 40.3 ABG pO2 78.1 L ABG HCO3 23.7 ABG O2 Saturation 95.5 ABG Base Excess -1.1 FiO2 21% Sodium Potassium Chloride Carbon Dioxide Anion Gap BUN Creatinine Est GFR ( Amer) Est GFR (Non-Af Amer) Glucose Calcium Phosphorus Magnesium 12/16/17 12/16/17 12/16/17 06:39 10:54 17:00 Creatine Kinase 2960 H 31890 H 82278 H Troponin I 12/17/17 12/18/17 09:41 04:20 Creatine Kinase 4483 H Troponin I < 0.012 Impressions: Head CT 12/16/17 01:35 IMPRESSION: No acute findings. Assessment & Plan - Diagnosis (1) Acute respiratory failure Qualifiers: Respiratory failure complication: hypoxia and hypercapnia Qualified Code(s) : J96.01 - Acute respiratory failure with hypoxia; J96.02 - Acute respiratory failure with hypercapnia; J96.02 - Acute respiratory failure with hypercapnia; J96.02 - Acute respiratory failure with hypercapnia Is this a current diagnosis for this admission?: Yes Plan: Still uncertain as to whether patient can protect airway other parameters look good (2) Alcohol dependence with withdrawal Is this a current diagnosis for this admission?: Yes Plan: DT precautions (3) Polysubstance overdose Qualifiers: Encounter type: initial encounter Injury intent: undetermined intent Qualified Code(s): T50.904A - Poisoning by unspecified drugs, medicaments and biological substances, undetermined, initial encounter Is this a current diagnosis for this admission?: Yes (4) Rhabdomyolysis Is this a current diagnosis for this admission?: Yes Plan: Improving - Time Total Critical Time (Minutes): 40
--- NOTE | 2017-12-18 13:23 | PDOC PROGRESS REPORT ---
Subjective Progress Note for:: 12/18/17 - seen on rounds with intensivits this AM Subjective:: patient still intubated- responds to physical stimuli but not verbal Reason For Visit: ACUTE RESP FAILURE, ENCEPHALOPATHY POLYSUBSTANCE Physical Exam Vital Signs: Temp Pulse Resp BP Pulse Ox 98.2 F 71 12 136/85 H 96 12/18/17 05:59 12/18/17 10:00 12/18/17 11:00 12/18/17 10:11 12/18/17 11:17 Intake & Output 12/17/17 12/18/17 12/19/17 06:59 06:59 06:59 Intake Total 5519 6047 Output Total 1930 3810 1250 Balance 3589 2237 -1250 Weight 180 lb 1.883 oz 184 lb 4.903 oz General appearance: PRESENT: no acute distress - intubated Head exam: PRESENT: atraumatic, normocephalic Eye exam: PRESENT: EOMI. ABSENT: conjunctival injection, scleral icterus Mouth exam: PRESENT: moist Neck exam: ABSENT: tracheal deviation Respiratory exam: PRESENT: clear to auscultation dashawn, symmetrical. ABSENT: rhonchi, wheezes Cardiovascular exam: PRESENT: +S1, +S2 Pulses: PRESENT: +2 pedal pulses bilateral GI/Abdominal exam: PRESENT: normal bowel sounds, soft. ABSENT: tenderness Extremities exam: ABSENT: joint swelling, pedal edema Musculoskeletal exam: PRESENT: other - sedated- unable to evaluate Neurological exam: PRESENT: other - unable to perform exam - patient intubated Skin exam: PRESENT: dry, warm Results Laboratory Results: 12/18/17 04:20 12/18/17 04:20 12/18/17 12/18/17 12/18/17 04:20 04:20 05:45 WBC 6.1 RBC 4.34 L Hgb 13.8 Hct 40.2 MCV 93 MCH 31.8 MCHC 34.3 RDW 13.3 Plt Count 174 Seg Neutrophils % 61.9 Lymphocytes % 25.7 Monocytes % 9.5 Eosinophils % 2.5 Basophils % 0.4 Absolute Neutrophils 3.8 Absolute Lymphocytes 1.6 Absolute Monocytes 0.6 Absolute Eosinophils 0.2 Absolute Basophils 0.0 Carbonic Acid 1.21 HCO3/H2CO3 Ratio 19:1 ABG pH 7.39 ABG pCO2 40.3 ABG pO2 78.1 L ABG HCO3 23.7 ABG O2 Saturation 95.5 ABG Base Excess -1.1 FiO2 21% Sodium 144.8 Potassium 3.9 Chloride 114 H Carbon Dioxide 26 Anion Gap 5 BUN 5 L Creatinine 0.78 Est GFR ( Amer) > 60 Est GFR (Non-Af Amer) > 60 Glucose 119 H Calcium 8.2 L Phosphorus 2.6 Magnesium 2.3 12/16/17 12/16/17 12/16/17 06:39 10:54 17:00 Creatine Kinase 2960 H 60757 H 95661 H Troponin I 12/17/17 12/18/17 09:41 04:20 Creatine Kinase 4483 H Troponin I < 0.012 Impressions: Head CT 12/16/17 01:35 IMPRESSION: No acute findings. Chest X-Ray 12/18/17 06:00 IMPRESSION: NO ACUTE DISEASE. Assessment & Plan - Diagnosis (1) Acute respiratory failure Qualifiers: Respiratory failure complication: hypoxia and hypercapnia Qualified Code(s) : J96.01 - Acute respiratory failure with hypoxia; J96.02 - Acute respiratory failure with hypercapnia; J96.02 - Acute respiratory failure with hypercapnia; J96.02 - Acute respiratory failure with hypercapnia Is this a current diagnosis for this admission?: Yes Plan: on ventilator- discussed case with Top Ironer at bedside- he recommends to keep him ventilated for another 24 hours and then start weaning trials for extubation. Vent management per his directions. Becki noted and required for critically ill patients- will assess daily for needs. OGT note- PO meds crushed and administered. (2) Ventilator dependent Is this a current diagnosis for this admission?: Yes Plan: see plan above. continue with VAP protocols as discussed (3) Polysubstance overdose Qualifiers: Encounter type: initial encounter Injury intent: undetermined intent Qualified Code(s): T50.904A - Poisoning by unspecified drugs, medicaments and biological substances, undetermined, initial encounter Is this a current diagnosis for this admission?: Yes Plan: will need counseling once he's alert and awake (4) Respiratory acidosis Is this a current diagnosis for this admission?: Yes (5) Rhabdomyolysis Is this a current diagnosis for this admission?: Yes Plan: his CPK is much improved- will decrease his IV fluids- currently on D5 1/2 NS at 250cc- will decrease to 150cc/hr from this afternoon. repeat CPK in AM (6) Alcohol dependence with withdrawal Is this a current diagnosis for this admission?: Yes Plan: currently on Valium 10mg Q6- will start to taper from tomorrow- will decrease to 10mg Q8. - Plan Summary Plan Summary: remain on mechanical ventilation - weaning trials- possible extubation in AM and discharge to home when ready I spent greater than 50 mins in patient critical care time today. more than 50 % time was coordinating and counseling care with ICU nursing and sales operations consultant
[2017-12-18] MEDS ORDERED: AMPICILLIN SODIUM/SULBACTAM NA 3 GM in NORMAL SALINE 100 ML IV ONE (19:00)
[2017-12-18] MEDS: AMPICILLIN SODIUM/SULBACTAM NA 3 GM in NORMAL SALINE 100 ML IV SCH (23:23)
[2017-12-19] MEDS: PROPOFOL 1,000 MG/100 ML INFUS..BTL IV PRN ×6 (03:51→22:01)
[2017-12-19] MEDS: DEXTROSE 5%-1/2 NORMAL SALINE 1,000 ML IV PRN ×3 (03:52→23:28)
[2017-12-19 04:24] LABS: ABSOLUTE EOSINOPHILS # (AUTO) 0.2 10^3/uL (0.0-0.6); ABSOLUTE LYMPHOCYTES (AUTO) 1.6 10^3/uL (0.5-4.7); ABSOLUTE MONOCYTES (AUTO) 0.6 10^3/uL (0.1-1.4); ABSOLUTE NEUT (AUTO) 3.5 10^3/uL (1.7-8.2); BASOPHILS % (AUTO) 0.5 % (0-2); HEMOGLOBIN 13.6 g/dL (13.5-17.0); LYMPHOCYTES % (AUTO) 27.9 % (13-45); MEAN CORPUSCULAR HEMOGLOBIN 31.4 pg (27.0-33.4); MEAN CORPUSCULAR VOLUME 92 fl (80-97); MONOCYTES % (AUTO) 9.4 % (3-13); PLATELET COUNT 180 10^3/uL (150-450); RED BLOOD COUNT 4.34 10^6/uL (4.35-5.55); RED CELL DISTRIBUTION WIDTH 13.1 % (11.5-14.0); SEGMENTED NEUTROPHILS % (AUTO) 59.2 % (42-78); TOTAL CELLS COUNTED % (AUTO) 100 %; WHITE BLOOD COUNT 5.9 10^3/uL (4.0-10.5)
[2017-12-19 04:28] LABS: BLOOD UREA NITROGEN 5 mg/dL (7-20); CALCIUM 8.5 mg/dL (8.4-10.2); GLUCOSE 100 mg/dL (75-110); PHOSPHORUS 3.4 mg/dL (2.5-4.5); TRIGLYCERIDES 154 mg/dL (<150)
[2017-12-19 04:42] LABS: ANION GAP 6 (5-19); CARBON DIOXIDE 25 mmol/L (22-30); CHLORIDE 115 mmol/L (98-107); POTASSIUM 3.9 mmol/L (3.6-5.0); SODIUM 145.5 mmol/L (137-145)
[2017-12-19] MEDS: AMPICILLIN SODIUM/SULBACTAM NA 3 GM in NORMAL SALINE 100 ML IV SCH ×4 (05:38→23:49)
[2017-12-19] MEDS: DIAZEPAM 5 MG TABLET PO SCH ×3 (05:38→23:47)
[2017-12-19] MEDS: HEPARIN SOD (PORCINE) 5,000 UNIT/ML 1 ML SYRINGE SUBCUT SCH ×3 (05:39→23:48)
[2017-12-19 05:40] LABS: ARTERIAL BLOOD BASE EXCESS 0 mmol/L; ARTERIAL BLOOD FIO2 21%; ARTERIAL BLOOD H2CO3 1.11 mmol/L (1.05-1.35); ARTERIAL BLOOD O2 SATURATION 97.3 % (94-98); ARTERIAL BLOOD PCO2 36.8 mmHg (35-45); ARTERIAL BLOOD PH 7.43 (7.35-7.45); ARTERIAL BLOOD PO2 92.4 mmHg (80-100); ARTERIAL BLOOD TOTAL CO2 25.1 mmol/L (23-27)
[2017-12-19 06:38] LABS: HEPATITIS A AB IGM Negative (Negative); HEPATITIS B CORE AB IGM Negative (Negative); HEPATITS B SURFACE ANTIGEN Negative (Negative)
[2017-12-19 07:22] LABS: HEPATITIS C VIRUS ANTIBODY >11.0 s/co ratio (0.0-0.9)
--- NOTE | 2017-12-19 07:54 | RADIOLOGY REPORT (SQ) ---
EXAM DESCRIPTION: CHEST SINGLE VIEW COMPLETED DATE/TIME: 12/19/2017 6:36 am REASON FOR STUDY: resp failure COMPARISON: 12/18/2017. EXAM PARAMETERS: NUMBER OF VIEWS: One view. TECHNIQUE: Single frontal radiographic view of the chest acquired. RADIATION DOSE: NA LIMITATIONS: None. FINDINGS: LUNGS AND PLEURA: No opacities, masses or pneumothorax. No pleural effusion. MEDIASTINUM AND HILAR STRUCTURES: No masses. Contour normal. HEART AND VASCULAR STRUCTURES: Heart normal in size. Normal vasculature. BONES: No acute findings. HARDWARE: Endotracheal tube above monie in good position. OTHER: The NG tube overlying stomach. IMPRESSION: NO ACUTE RADIOGRAPHIC FINDING IN THE CHEST. TECHNICAL DOCUMENTATION: JOB ID: [id number] SC-69 2010 [employer]- All Rights Reserved Reading location - IP/workstation name: [email or web address]
[2017-12-19] MEDS: LORAZEPAM INJ 2 MG/1 ML VIAL IV PRN ×2 (08:24→18:56)
[2017-12-19] MEDS: PANTOPRAZOLE SODIUM 40 MG VIAL IV SCH (09:15)
[2017-12-19] MEDS: FENTANYL CITRATE INJ/PF 100 MCG/2 ML AMPUL IV PRN ×2 (10:10→20:53)
--- NOTE | 2017-12-19 17:57 | RADIOLOGY REPORT (SQ) ---
EXAM DESCRIPTION: CT HEAD WITH COMPLETED DATE/TIME: 12/19/2017 5:30 pm REASON FOR STUDY: Sz like activity COMPARISON: 12/16/2017 TECHNIQUE: Axial images acquired through the brain with intravenous contrast. Images reviewed with b one, brain and subdural windows. Additional sagittal and coronal reconstructions were generated. Raiza ges stored on PACS. All CT scanners at this facility use dose modulation, iterative reconstruction, and/or weight based d osing when appropriate to reduce radiation dose to as low as reasonably achievable (ALARA). [facility]: Dose Right [facility]: CareDose [facility]: Dose Right [facility]: Teradose 4D [facility]: Zimbra CONTRAST TYPE AND DOSE: contrast/concentration: Isovue 370.00 mg/ml; Total Contrast Delivered: 50.0 ml; Total Saline Delivered: 50.0 ml RENAL FUNCTION: None required. The patient is less than 50 years old. RADIATION DOSE: CT Rad equipment meets quality standard of care and radiation dose reduction techniq ues were employed. CTDIvol: 53.2 mGy. DLP: 964 mGy-cm.. LIMITATIONS: None. FINDINGS: VENTRICLES: Normal size and contour. CEREBRUM: No masses. No hemorrhage. No midline shift. Normal pandey/white matter differentiation. No ev idence for acute infarction. No enhancing lesions. CEREBELLUM: No masses. No hemorrhage. No alteration of density. No evidence for acute infarction. No enhancing lesions. EXTRA-AXIAL SPACES: No fluid collections. No enhancing lesions. ORBITS AND GLOBE: No intra- or extraconal masses. Normal contour of globe without masses. CALVARIUM: No fracture. PARANASAL SINUSES: No fluid or mucosal thickening. SOFT TISSUES: No mass or hematoma. OTHER: No other significant finding. IMPRESSION: NORMAL BRAIN CT WITH CONTRAST. EVIDENCE OF ACUTE STROKE: NO. TECHNICAL DOCUMENTATION: JOB ID: [id number] Quality ID # [id number]: Final reports with documentation of one or more dose reduction techniques (e.g., Au tomated exposure control, adjustment of the mA and/or kV according to patient size, use of iterative reconstruction technique) 2010 [employer]- All Rights Reserved Reading location - IP/workstation name: [email or web address]
--- NOTE | 2017-12-19 18:55 | PROGRESS NOTE E ---
Progress Note NAME: YAYA WILL : 1985 AGE: 32Y DATE: 12/19/2017 ROOM: [facility] CHIEF COMPLAINT: Unobtainable. SUBJECTIVE: The patient is lying in bed. The patient remains ventilated. The hope was to get the patient extubated today; however, he was unable to maintain himself on pressure support, having greater than 30 seconds of apnea, although the patient appeared to be awake and could follow commands when sedation was cut off. This was discussed with Pulmonology, and therefore, did not proceed with extubation today. However, the patient does remain on minimal vent settings, including 21% FiO2. The patient has remained afebrile, proportionally bradycardic to sedation and at this time, the patient was placed on a rate of 14, but he is not taking breaths over that at this time. The patient has been afebrile. His blood pressures have been in a good range, and the patient is unable to articulate any concerns at this time. REVIEW OF SYSTEMS: Unobtainable. MEDICATIONS: Reviewed. OBJECTIVE: GENERAL: The patient is a 32-year-old male, who is intubated, sedated. Does not appear to be distressed. VITAL SIGNS: Temperature is 99.0, pulse 53, respirations 12, blood pressure 124/80. Oxygen saturation is 97% on 21% FiO2. SKIN: Warm and dry. No rash. Not diaphoretic. HEENT: Pupils equal, round, reactive to light and accommodation. Mucous membranes are moist. ET tube in place with Papi. CVS: Heart is regular. No rub. CHEST: Clear, symmetrical, unlabored. ABDOMEN: Soft, nontender, nondistended. EXTREMITIES: No clubbing, cyanosis, edema. Some dependent edema noted in his bilateral hands. PSYCHIATRIC: Unable to be assessed. DIAGNOSTICS: Lab values are as follows: Hematology obtained on 12/19/2017: WBCs are 5.9, hemoglobin 13.6, hematocrit is 40.4, platelet count is 180,000. Chemistry obtained on 12/19/2017: Sodium is 145, potassium is 4.0, chloride is 115, carbon dioxide 25, BUN 5, creatinine is 0.72. Glucose 100, calcium is 8.5, phosphorus 3.4, magnesium is 1.2. Triglycerides are 154. Chest x-ray obtained on 12/19/2017 reveals no radiographic finding of the chest. ET tube appears to be above the monie, in good position, and G-tube appears to be in appropriate position, as well. IMPRESSION AND PLAN: 1. ACUTE RESPIRATORY FAILURE, CURRENTLY VENTILATOR DEPENDENT. The patient's respiratory failure appeared to be due to his polysubstance abuse. Remains under VAT protocol with bed elevations, so forth. Do appreciate Curseen's input on this. Given that patient may have some central apnea, will proceed with repeat CT today to evaluate for evidence of hypoxic brain injury and follow. 2. POLYSUBSTANCE OVERDOSE. This did not appear to be an attempted suicide, as the patient has had a long history of drug abuse. Will consult Psych once the patient is extubated. 3. RESPIRATORY ACIDOSIS. Will wean. 4. RHABDOMYOLYSIS. This appears to have peaked. Given that the patient has been hydrated, this was due to prolonged immobility. 5. ALCOHOL DEPENDENCE WITH ACUTE WITHDRAWALS. Patient has been agitated, even with propofol. He is currently on Valium q.6. We will leave it at that for now, as the patient does also have a history of benzo abuse. Will continue with seizure precautions. DISPOSITION: The patient is a FULL CODE. Pending patient's symptomatology and diagnostic findings, we will reevaluate as needed. Time spent on this critical care visit, including assessment, plan, physical examination, attempted patient education, review of records, is 35 minutes. DICTATING PHYSICIAN: ANTOINE DURAND NP [id number] PHY#: [id number] ID: [id number] JOB#: [id number] ACCT: [id number] cc: > MTDD
[2017-12-20] MEDS: PROPOFOL 1,000 MG/100 ML INFUS..BTL IV PRN ×7 (01:01→22:51)
[2017-12-20 04:12] LABS: ABSOLUTE EOSINOPHILS # (AUTO) 0.2 10^3/uL (0.0-0.6); ABSOLUTE LYMPHOCYTES (AUTO) 1.6 10^3/uL (0.5-4.7); ABSOLUTE MONOCYTES (AUTO) 0.4 10^3/uL (0.1-1.4); ABSOLUTE NEUT (AUTO) 2.9 10^3/uL (1.7-8.2); BASOPHILS % (AUTO) 0.5 % (0-2); EOSINOPHILS % (AUTO) 3.8 % (0-6); HEMATOCRIT 41.6 % (37.9-51.0); LYMPHOCYTES % (AUTO) 30.8 % (13-45); MEAN CORPUSCULAR HEMOGLOBIN 30.9 pg (27.0-33.4); MEAN CORPUSCULAR HGB CONC 33.6 g/dL (32.0-36.0); MEAN CORPUSCULAR VOLUME 92 fl (80-97); MONOCYTES % (AUTO) 8.8 % (3-13); PLATELET COUNT 197 10^3/uL (150-450); RED BLOOD COUNT 4.52 10^6/uL (4.35-5.55); SEGMENTED NEUTROPHILS % (AUTO) 56.1 % (42-78); TOTAL CELLS COUNTED % (AUTO) 100 %; WHITE BLOOD COUNT 5.1 10^3/uL (4.0-10.5)
[2017-12-20] MEDS: FENTANYL CITRATE INJ/PF 100 MCG/2 ML AMPUL IV PRN ×4 (04:14→21:26)
[2017-12-20 04:30] LABS: ANION GAP 5 (5-19); BLOOD UREA NITROGEN 4 mg/dL (7-20); CALCIUM 8.7 mg/dL (8.4-10.2); CARBON DIOXIDE 28 mmol/L (22-30); CHLORIDE 113 mmol/L (98-107); GLUCOSE 98 mg/dL (75-110); POTASSIUM 3.7 mmol/L (3.6-5.0); SODIUM 145.7 mmol/L (137-145)
[2017-12-20] MEDS: HEPARIN SOD (PORCINE) 5,000 UNIT/ML 1 ML SYRINGE SUBCUT SCH ×3 (05:41→21:46)
[2017-12-20] MEDS: AMPICILLIN SODIUM/SULBACTAM NA 3 GM in NORMAL SALINE 100 ML IV SCH ×4 (05:42→23:29)
[2017-12-20] MEDS: DIAZEPAM 5 MG TABLET PO SCH ×3 (07:15→21:46)
--- NOTE | 2017-12-20 07:36 | RADIOLOGY REPORT (SQ) ---
EXAM DESCRIPTION: CHEST SINGLE VIEW COMPLETED DATE/TIME: 12/20/2017 6:19 am REASON FOR STUDY: pna COMPARISON: AP chest 12/18/2017, 12/19/2017 EXAM PARAMETERS: NUMBER OF VIEWS: One view. TECHNIQUE: Single frontal radiographic view of the chest acquired. RADIATION DOSE: NA LIMITATIONS: None. FINDINGS: LUNGS AND PLEURA: Lungs are grossly clear. No pleural effusion. No pneumothorax. MEDIASTINUM AND HILAR STRUCTURES: No masses. Contour normal. HEART AND VASCULAR STRUCTURES: Heart normal in size. Normal vasculature. BONES: No acute findings. HARDWARE: Endotracheal tube tip knee 8 cm above the monie. This report was called to Tess DEAN in the ICU, 0725 hours 12/20/2017. Nasogastric tube tip and side port below the hemidiaphragms. OTHER: No other significant finding. IMPRESSION: No focal infiltrates Endotracheal tube is high, tip is at the level of the clavicles 8 cm above the monie. This report was called to the patient's ICU nurse TECHNICAL DOCUMENTATION: JOB ID: [id number] [employer]- All Rights Reserved Reading location - IP/workstation name: [email or web address]
[2017-12-20] MEDS: PANTOPRAZOLE SODIUM 40 MG VIAL IV SCH (12:04)
[2017-12-20] MEDS: DEXTROSE 5%-1/2 NORMAL SALINE 1,000 ML IV PRN ×2 (12:42→23:30)
--- NOTE | 2017-12-20 18:43 | PDOC PROGRESS REPORT ---
Subjective Progress Note for:: 12/20/17 Subjective:: No adverse events overnight. He remains sedated and intubated. Apparently getting him extubated is been an issue, as when his vent settings are decreased he does not tend to tolerate it for some reason. His vital signs of otherwise been stable. His oxygenation has been excellent and he has not required substantial ventilator settings to maintain good blood gases. Reason For Visit: ACUTE RESP FAILURE, ENCEPHALOPATHY POLYSUBSTANCE Physical Exam Vital Signs: Temp Pulse Resp BP Pulse Ox 99.3 F 69 14 122/73 95 12/20/17 18:00 12/20/17 18:00 12/20/17 18:00 12/20/17 18:00 12/20/17 18:00 Intake & Output 12/19/17 12/20/17 12/21/17 06:59 06:59 06:59 Intake Total 3887 3172 Output Total 3700 5000 2440 Balance 187 -1828 -2440 Weight 82.9 kg 81.2 kg General appearance: PRESENT: no acute distress - Sedated, intubated, well- developed, well-nourished Respiratory exam: PRESENT: clear to auscultation dashawn. ABSENT: rales, rhonchi, wheezes Cardiovascular exam: PRESENT: RRR. ABSENT: diastolic murmur, rubs, systolic murmur GI/Abdominal exam: PRESENT: normal bowel sounds, soft. ABSENT: distended, guarding, mass, organolmegaly, rebound, tenderness Extremities exam: ABSENT: clubbing, pedal edema Musculoskeletal exam: PRESENT: normal inspection. ABSENT: deformity Neurological exam: PRESENT: other - Sedated, intubated Results Laboratory Results: 12/20/17 04:02 12/20/17 04:02 12/20/17 12/20/17 04:02 04:02 WBC 5.1 RBC 4.52 Hgb 14.0 Hct 41.6 MCV 92 MCH 30.9 MCHC 33.6 RDW 13.0 Plt Count 197 Seg Neutrophils % 56.1 Lymphocytes % 30.8 Monocytes % 8.8 Eosinophils % 3.8 Basophils % 0.5 Absolute Neutrophils 2.9 Absolute Lymphocytes 1.6 Absolute Monocytes 0.4 Absolute Eosinophils 0.2 Absolute Basophils 0.0 Sodium 145.7 H Potassium 3.7 Chloride 113 H Carbon Dioxide 28 Anion Gap 5 BUN 4 L Creatinine 0.67 Est GFR ( Amer) > 60 Est GFR (Non-Af Amer) > 60 Glucose 98 Calcium 8.7 Magnesium 2.0 12/16/17 12/16/17 12/16/17 06:39 10:54 17:00 Creatine Kinase 2960 H 45628 H 22892 H Troponin I 12/17/17 12/18/17 09:41 04:20 Creatine Kinase 4483 H Troponin I < 0.012 Impressions: Head CT 12/19/17 00:00 IMPRESSION: NORMAL BRAIN CT WITH CONTRAST. EVIDENCE OF ACUTE STROKE: NO. Chest X-Ray 12/20/17 06:00 IMPRESSION: No focal infiltrates Endotracheal tube is high, tip is at the level of the clavicles 8 cm above the monie. This report was called to the patient's ICU nurse Assessment & Plan - Diagnosis (1) Acute respiratory failure Qualifiers: Respiratory failure complication: hypoxia and hypercapnia Qualified Code(s) : J96.01 - Acute respiratory failure with hypoxia; J96.02 - Acute respiratory failure with hypercapnia; J96.02 - Acute respiratory failure with hypercapnia; J96.02 - Acute respiratory failure with hypercapnia Is this a current diagnosis for this admission?: Yes Plan: Primarily with hypoxemia. The main issue now is getting him extubated. Pulmonology has been consulted. We suspect something neurological at this point. CT of his head did not show any evidence of any anoxic brain injury, stroke, mass, or bleeding. (2) Alcohol dependence with withdrawal Qualifiers: Complication of substance-induced condition: with delirium Qualified Code(s ): F10.231 - Alcohol dependence with withdrawal delirium Is this a current diagnosis for this admission?: Yes Plan: Withdrawal has resolved (3) Polysubstance overdose Qualifiers: Encounter type: initial encounter Injury intent: undetermined intent Qualified Code(s): T50.904A - Poisoning by unspecified drugs, medicaments and biological substances, undetermined, initial encounter Is this a current diagnosis for this admission?: Yes Plan: Resolved (4) Rhabdomyolysis Is this a current diagnosis for this admission?: Yes Plan: Resolved - Time Time Spent with patient: 35 or more minutes Total Critical Time (Minutes): 35 Medications reviewed and adjusted accordingly: Yes
[2017-12-21] MEDS: PROPOFOL 1,000 MG/100 ML INFUS..BTL IV PRN ×7 (01:34→22:24)
[2017-12-21] MEDS: AMPICILLIN SODIUM/SULBACTAM NA 3 GM in NORMAL SALINE 100 ML IV SCH ×4 (06:09→23:12)
[2017-12-21] MEDS: HEPARIN SOD (PORCINE) 5,000 UNIT/ML 1 ML SYRINGE SUBCUT SCH ×3 (06:10→22:04)
[2017-12-21] MEDS: DIAZEPAM 5 MG TABLET PO SCH (06:10)
--- NOTE | 2017-12-21 07:45 | EKG REPORT ---
SEVERITY:- BORDERLINE ECG - SINUS RHYTHM PROBABLE LEFT ATRIAL ABNORMALITY RIGHT AXIS DEVIATION BORDERLINE T WAVE ABNORMALITIES : Confirmed by: Erin Jenkins MD 21-Dec-2017 07:44:47
[2017-12-21] MEDS: FENTANYL CITRATE INJ/PF 100 MCG/2 ML AMPUL IV PRN ×3 (09:50→19:59)
[2017-12-21] MEDS: PANTOPRAZOLE SODIUM 40 MG VIAL IV SCH (09:55)
[2017-12-21] MEDS: DEXTROSE 5%-1/2 NORMAL SALINE 1,000 ML IV PRN ×2 (11:15→22:24)
[2017-12-21] MEDS: LORAZEPAM INJ 2 MG/1 ML VIAL IV PRN ×3 (11:50→20:56)
--- NOTE | 2017-12-21 18:23 | PDOC PROGRESS REPORT ---
Subjective Progress Note for:: 12/21/17 Subjective:: He remains sedated but extubated. Apparently weaned his sedation yesterday and he came up pretty forcefully and so they had to put him back down under sedation. Blood gases remained stable. He remains afebrile. Reason For Visit: ACUTE RESP FAILURE, ENCEPHALOPATHY POLYSUBSTANCE Physical Exam Vital Signs: Temp Pulse Resp BP Pulse Ox 99.3 F 82 13 132/70 H 96 12/21/17 16:00 12/21/17 16:00 12/21/17 16:00 12/21/17 16:00 12/21/17 17:24 Intake & Output 12/20/17 12/21/17 12/22/17 06:59 06:59 06:59 Intake Total 3172 3048 1290 Output Total 5000 3450 1295 Balance -1828 -402 -5 Weight 81.2 kg 79.7 kg General appearance: PRESENT: other - Sedated, intubated Respiratory exam: PRESENT: clear to auscultation dashawn. ABSENT: rales, rhonchi, wheezes Cardiovascular exam: PRESENT: RRR. ABSENT: diastolic murmur, rubs, systolic murmur Vascular exam: PRESENT: normal capillary refill GI/Abdominal exam: PRESENT: normal bowel sounds, soft. ABSENT: distended, guarding, mass, organolmegaly, rebound, tenderness Extremities exam: ABSENT: clubbing, pedal edema Musculoskeletal exam: PRESENT: normal inspection. ABSENT: deformity Neurological exam: PRESENT: other - Sedated, intubated Results Laboratory Results: 12/20/17 04:02 12/20/17 04:02 12/18/17 07:45 Tracheal Aspirate Gram Stain - Final 12/16/17 12/16/17 12/16/17 06:39 10:54 17:00 Creatine Kinase 2960 H 01383 H 11943 H Troponin I 12/17/17 12/18/17 09:41 04:20 Creatine Kinase 4483 H Troponin I < 0.012 Impressions: Head CT 12/19/17 00:00 IMPRESSION: NORMAL BRAIN CT WITH CONTRAST. EVIDENCE OF ACUTE STROKE: NO. Chest X-Ray 12/20/17 06:00 IMPRESSION: No focal infiltrates Endotracheal tube is high, tip is at the level of the clavicles 8 cm above the monie. This report was called to the patient's ICU nurse Assessment & Plan - Diagnosis (1) Acute respiratory failure Qualifiers: Respiratory failure complication: hypoxia and hypercapnia Qualified Code(s) : J96.01 - Acute respiratory failure with hypoxia; J96.02 - Acute respiratory failure with hypercapnia; J96.02 - Acute respiratory failure with hypercapnia; J96.02 - Acute respiratory failure with hypercapnia Is this a current diagnosis for this admission?: Yes Plan: He continues to be difficult to wean. Some of his other as needed sedation medications have been cut back in their dosage, will continue to try to cut back until we completely get him off everything except for propofol. Then will start to cut that back some as well the hopes that we can get him to do a successful spontaneous breathing trial. We have to try to remove any variables that could be affecting his respiratory pattern before we can definitely say that he has got something internal like a neurological process that is affecting his breathing. Repeat head CT a couple of days ago was unremarkable. (2) Alcohol dependence with withdrawal Qualifiers: Complication of substance-induced condition: with delirium Qualified Code(s ): F10.231 - Alcohol dependence with withdrawal delirium Is this a current diagnosis for this admission?: Yes Plan: Withdrawal has resolved (3) Polysubstance overdose Qualifiers: Encounter type: initial encounter Injury intent: undetermined intent Qualified Code(s): T50.904A - Poisoning by unspecified drugs, medicaments and biological substances, undetermined, initial encounter Is this a current diagnosis for this admission?: Yes Plan: Resolved (4) Rhabdomyolysis Is this a current diagnosis for this admission?: Yes Plan: Resolved - Time Time Spent with patient: 35 or more minutes Total Critical Time (Minutes): 35 Medications reviewed and adjusted accordingly: Yes
[2017-12-22] MEDS: PROPOFOL 1,000 MG/100 ML INFUS..BTL IV PRN ×2 (01:42→05:33)
[2017-12-22 04:25] LABS: ABSOLUTE EOSINOPHILS # (AUTO) 0.2 10^3/uL (0.0-0.6); ABSOLUTE LYMPHOCYTES (AUTO) 1.6 10^3/uL (0.5-4.7); ABSOLUTE MONOCYTES (AUTO) 0.6 10^3/uL (0.1-1.4); ABSOLUTE NEUT (AUTO) 2.5 10^3/uL (1.7-8.2); BASOPHILS % (AUTO) 0.7 % (0-2); EOSINOPHILS % (AUTO) 3.2 % (0-6); HEMATOCRIT 43.3 % (37.9-51.0); HEMOGLOBIN 14.8 g/dL (13.5-17.0); MEAN CORPUSCULAR HGB CONC 34.3 g/dL (32.0-36.0); MEAN CORPUSCULAR VOLUME 90 fl (80-97); MONOCYTES % (AUTO) 12.9 % (3-13); PLATELET COUNT 246 10^3/uL (150-450); RED BLOOD COUNT 4.79 10^6/uL (4.35-5.55); SEGMENTED NEUTROPHILS % (AUTO) 51.2 % (42-78); TOTAL CELLS COUNTED % (AUTO) 100 %; WHITE BLOOD COUNT 4.9 10^3/uL (4.0-10.5)
[2017-12-22 04:44] LABS: ANION GAP 8 (5-19); BLOOD UREA NITROGEN 8 mg/dL (7-20); CALCIUM 9.1 mg/dL (8.4-10.2); CARBON DIOXIDE 27 mmol/L (22-30); CHLORIDE 109 mmol/L (98-107); GLUCOSE 97 mg/dL (75-110); PHOSPHORUS 4.4 mg/dL (2.5-4.5); POTASSIUM 3.8 mmol/L (3.6-5.0); SODIUM 144.3 mmol/L (137-145); TRIGLYCERIDES 289 mg/dL (<150)
[2017-12-22 05:16] LABS: ARTERIAL BLOOD BASE EXCESS 1.6 mmol/L; ARTERIAL BLOOD H2CO3 1.37 mmol/L (1.05-1.35); ARTERIAL BLOOD O2 SATURATION 96.1 % (94-98); ARTERIAL BLOOD PCO2 45.6 mmHg (35-45); ARTERIAL BLOOD PH 7.39 (7.35-7.45); ARTERIAL BLOOD PO2 83.1 mmHg (80-100); ARTERIAL BLOOD TOTAL CO2 28.4 mmol/L (23-27)
[2017-12-22] MEDS: AMPICILLIN SODIUM/SULBACTAM NA 3 GM in NORMAL SALINE 100 ML IV SCH ×3 (05:19→17:23)
[2017-12-22] MEDS: HEPARIN SOD (PORCINE) 5,000 UNIT/ML 1 ML SYRINGE SUBCUT SCH ×3 (05:19→21:19)
[2017-12-22 05:30] LABS: ARTERIAL BLOOD FIO2 21%
[2017-12-22] MEDS: FENTANYL CITRATE INJ/PF 100 MCG/2 ML AMPUL IV PRN (06:14)
--- NOTE | 2017-12-22 06:26 | RADIOLOGY REPORT (SQ) ---
EXAM DESCRIPTION: XR CHEST 1 VIEW COMPLETED DATE/TME: 12/22/2017 06:00 CINICAL HISTORY: Respiratory failure. Intubated patient. COMPARISON: 12/20/2017 FINDINGS: Single frontal view of the chest. Endotracheal tube with tip at the level of clavicles. NG tube with tip below the diaphragm. Leads overlie the chest. Cardia mediastinal silhouette is stable. No consolidation, pneumothorax, or pleural effusion. No displaced rib fractures identified. Upper abdominal soft tissues are unremarkable. IMPRESSION: 1. Stable appearance of the chest.
[2017-12-22] MEDS: PANTOPRAZOLE SODIUM 40 MG VIAL IV SCH (11:00)
[2017-12-22] MEDS: LORAZEPAM INJ 2 MG/1 ML VIAL IV PRN (13:21)
--- NOTE | 2017-12-22 18:36 | PDOC PROGRESS REPORT ---
Subjective Progress Note for:: 12/22/17 Subjective:: No adverse events overnight. He remained sedated and intubated. Weaning trial has been started for today. He is able to wake up and answer yes/no questions appropriately was even joking around with his brother. Reason For Visit: ACUTE RESP FAILURE, ENCEPHALOPATHY POLYSUBSTANCE Physical Exam Vital Signs: Temp Pulse Resp BP Pulse Ox 99.1 F 75 20 132/75 H 97 12/22/17 16:00 12/22/17 17:03 12/22/17 17:03 12/22/17 17:03 12/22/17 17:15 Intake & Output 12/21/17 12/22/17 12/23/17 06:59 06:59 06:59 Intake Total 3048 2884 Output Total 3450 1865 2250 Balance -402 1019 -2250 Weight 79.7 kg 77.2 kg General appearance: PRESENT: no acute distress, well-developed, well-nourished, other - Sedated, intubated, when sedation is weaned he is able to answer yes and no questions appropriately Respiratory exam: PRESENT: clear to auscultation dashawn. ABSENT: rales, rhonchi, wheezes Cardiovascular exam: PRESENT: RRR. ABSENT: diastolic murmur, rubs, systolic murmur Vascular exam: PRESENT: normal capillary refill GI/Abdominal exam: PRESENT: normal bowel sounds, soft. ABSENT: distended, guarding, mass, organolmegaly, rebound, tenderness Extremities exam: ABSENT: clubbing, pedal edema Musculoskeletal exam: PRESENT: normal inspection. ABSENT: deformity Neurological exam: PRESENT: other - Still under some sedation but able to wake up and answer yes and no questions appropriately Results Laboratory Results: 12/22/17 04:17 12/22/17 04:17 12/22/17 12/22/17 12/22/17 04:17 04:17 05:00 WBC 4.9 RBC 4.79 Hgb 14.8 Hct 43.3 MCV 90 MCH 31.0 MCHC 34.3 RDW 13.0 Plt Count 246 Seg Neutrophils % 51.2 Lymphocytes % 32.0 Monocytes % 12.9 Eosinophils % 3.2 Basophils % 0.7 Absolute Neutrophils 2.5 Absolute Lymphocytes 1.6 Absolute Monocytes 0.6 Absolute Eosinophils 0.2 Absolute Basophils 0.0 Carbonic Acid 1.37 H HCO3/H2CO3 Ratio 19:1 ABG pH 7.39 ABG pCO2 45.6 H ABG pO2 83.1 ABG HCO3 27.0 H ABG O2 Saturation 96.1 ABG Base Excess 1.6 FiO2 21% Sodium 144.3 Potassium 3.8 Chloride 109 H Carbon Dioxide 27 Anion Gap 8 BUN 8 Creatinine 0.65 Est GFR ( Amer) > 60 Est GFR (Non-Af Amer) > 60 Glucose 97 Calcium 9.1 Phosphorus 4.4 Magnesium 2.2 Triglycerides 289 H 12/18/17 07:45 Tracheal Aspirate Gram Stain - Final 12/18/17 07:45 Tracheal Aspirate Sputum Culture - Final Streptococcus Pneumoniae Klebsiella Oxytoca C.albicans/C.dubliniensis Normal Aiyana Absent 12/16/17 12/16/17 12/16/17 06:39 10:54 17:00 Creatine Kinase 2960 H 54049 H 11405 H Troponin I 12/17/17 12/18/17 09:41 04:20 Creatine Kinase 4483 H Troponin I < 0.012 Impressions: Head CT 12/19/17 00:00 IMPRESSION: NORMAL BRAIN CT WITH CONTRAST. EVIDENCE OF ACUTE STROKE: NO. Chest X-Ray 12/22/17 06:00 IMPRESSION: 1. Stable appearance of the chest. Assessment & Plan - Diagnosis (1) Acute respiratory failure Qualifiers: Respiratory failure complication: hypoxia and hypercapnia Qualified Code(s) : J96.01 - Acute respiratory failure with hypoxia; J96.02 - Acute respiratory failure with hypercapnia; J96.02 - Acute respiratory failure with hypercapnia; J96.02 - Acute respiratory failure with hypercapnia Is this a current diagnosis for this admission?: Yes Plan: Weaning trial has begun today we hope to extubate him by this evening. (2) Alcohol dependence with withdrawal Qualifiers: Complication of substance-induced condition: with delirium Qualified Code(s ): F10.231 - Alcohol dependence with withdrawal delirium Is this a current diagnosis for this admission?: Yes Plan: Withdrawal has resolved (3) Polysubstance overdose Qualifiers: Encounter type: initial encounter Injury intent: undetermined intent Qualified Code(s): T50.904A - Poisoning by unspecified drugs, medicaments and biological substances, undetermined, initial encounter Is this a current diagnosis for this admission?: Yes Plan: Resolved (4) Rhabdomyolysis Is this a current diagnosis for this admission?: Yes Plan: Resolved - Time Time Spent with patient: 35 or more minutes Total Critical Time (Minutes): 35 Medications reviewed and adjusted accordingly: Yes
[2017-12-23] MEDS: AMPICILLIN SODIUM/SULBACTAM NA 3 GM in NORMAL SALINE 100 ML IV SCH ×5 (00:55→23:48)
[2017-12-23] MEDS: DEXTROSE 5%-1/2 NORMAL SALINE 1,000 ML IV PRN ×3 (00:58→22:03)
[2017-12-23 04:16] LABS: ABSOLUTE EOSINOPHILS # (AUTO) 0.1 10^3/uL (0.0-0.6); ABSOLUTE LYMPHOCYTES (AUTO) 2.1 10^3/uL (0.5-4.7); BASOPHILS % (AUTO) 0.6 % (0-2); EOSINOPHILS % (AUTO) 1.6 % (0-6); HEMATOCRIT 43.8 % (37.9-51.0); HEMOGLOBIN 15.3 g/dL (13.5-17.0); LYMPHOCYTES % (AUTO) 25.5 % (13-45); MEAN CORPUSCULAR HEMOGLOBIN 31.7 pg (27.0-33.4); MEAN CORPUSCULAR HGB CONC 34.9 g/dL (32.0-36.0); MEAN CORPUSCULAR VOLUME 91 fl (80-97); MONOCYTES % (AUTO) 11.7 % (3-13); PLATELET COUNT 262 10^3/uL (150-450); RED BLOOD COUNT 4.82 10^6/uL (4.35-5.55); RED CELL DISTRIBUTION WIDTH 12.6 % (11.5-14.0); SEGMENTED NEUTROPHILS % (AUTO) 60.6 % (42-78); TOTAL CELLS COUNTED % (AUTO) 100 %; WHITE BLOOD COUNT 8.3 10^3/uL (4.0-10.5)
[2017-12-23 04:24] LABS: ANION GAP 9 (5-19); BLOOD UREA NITROGEN 10 mg/dL (7-20); CALCIUM 9.2 mg/dL (8.4-10.2); CARBON DIOXIDE 26 mmol/L (22-30); CHLORIDE 110 mmol/L (98-107); GLUCOSE 100 mg/dL (75-110); PHOSPHORUS 3.2 mg/dL (2.5-4.5); POTASSIUM 3.8 mmol/L (3.6-5.0); SODIUM 144.8 mmol/L (137-145)
[2017-12-23] MEDS: HEPARIN SOD (PORCINE) 5,000 UNIT/ML 1 ML SYRINGE SUBCUT SCH ×3 (05:05→22:03)
[2017-12-23 05:23] LABS: ARTERIAL BLOOD BASE EXCESS 1.6 mmol/L; ARTERIAL BLOOD H2CO3 1.31 mmol/L (1.05-1.35); ARTERIAL BLOOD HCO3 26.6 mmol/L (20-26); ARTERIAL BLOOD O2 SATURATION 95.2 % (94-98); ARTERIAL BLOOD PCO2 43.5 mmHg (35-45); ARTERIAL BLOOD PH 7.41 (7.35-7.45); ARTERIAL BLOOD PO2 75.4 mmHg (80-100)
[2017-12-23 05:30] LABS: ARTERIAL BLOOD FIO2 ROOM AIR
--- NOTE | 2017-12-23 08:44 | RADIOLOGY REPORT (SQ) ---
EXAM DESCRIPTION: CHEST SINGLE VIEW COMPLETED DATE/TIME: 12/23/2017 7:49 am REASON FOR STUDY: resp fail COMPARISON: 12/22/2017 NUMBER OF VIEWS: One view. TECHNIQUE: Single frontal radiographic view of the chest acquired. LIMITATIONS: None. FINDINGS: LUNGS AND PLEURA: No opacities, masses or pneumothorax. No pleural effusion. MEDIASTINUM AND HILAR STRUCTURES: No masses. Contour normal. HEART AND VASCULAR STRUCTURES: Heart enlarged without failure. Normal vasculature. BONES: No acute findings. HARDWARE: None in the chest. OTHER: No other significant finding. IMPRESSION: HEART ENLARGED WITHOUT FAILURE. NO OTHER SIGNIFICANT RADIOGRAPHIC FINDING IN THE CHEST. TECHNICAL DOCUMENTATION: JOB ID: [id number] [employer]- All Rights Reserved Reading location - IP/workstation name: [email or web address]
[2017-12-23] MEDS: PANTOPRAZOLE SODIUM 40 MG VIAL IV SCH (09:32)
--- NOTE | 2017-12-23 15:04 | PDOC PROGRESS REPORT ---
Subjective Progress Note for:: 12/23/17 Subjective:: He was extubated yesterday and has done well overnight. He passed his swallow evaluation. He has been eating and drinking without difficulty. I asked him about the inciting event that caused him to be put in the hospital and he claims he has no knowledge of it. Reason For Visit: ACUTE RESP FAILURE, ENCEPHALOPATHY POLYSUBSTANCE Physical Exam Vital Signs: Temp Pulse Resp BP Pulse Ox 99.0 F 74 20 103/68 96 12/23/17 05:09 12/22/17 20:00 12/23/17 12:00 12/23/17 11:50 12/23/17 12:00 Intake & Output 12/22/17 12/23/17 12/24/17 06:59 06:59 06:59 Intake Total 2884 2281 200 Output Total 1865 3330 850 Balance 1019 -1049 -650 Weight 77.2 kg 75.8 kg General appearance: PRESENT: no acute distress, well-developed, well-nourished Respiratory exam: PRESENT: clear to auscultation dashawn, unlabored. ABSENT: accessory muscle use, rales, rhonchi, tachypnea, wheezes Cardiovascular exam: PRESENT: RRR. ABSENT: diastolic murmur, rubs, systolic murmur GI/Abdominal exam: PRESENT: normal bowel sounds, soft. ABSENT: distended, guarding, mass, organolmegaly, rebound, tenderness Extremities exam: ABSENT: clubbing, pedal edema Neurological exam: PRESENT: alert, awake, oriented to person, oriented to place , oriented to time Results Laboratory Results: 12/23/17 04:00 12/23/17 04:00 12/23/17 12/23/17 12/23/17 04:00 04:00 05:12 WBC 8.3 RBC 4.82 Hgb 15.3 Hct 43.8 MCV 91 MCH 31.7 MCHC 34.9 RDW 12.6 Plt Count 262 Seg Neutrophils % 60.6 Lymphocytes % 25.5 Monocytes % 11.7 Eosinophils % 1.6 Basophils % 0.6 Absolute Neutrophils 5.0 Absolute Lymphocytes 2.1 Absolute Monocytes 1.0 Absolute Eosinophils 0.1 Absolute Basophils 0.0 Carbonic Acid 1.31 HCO3/H2CO3 Ratio 20:1 ABG pH 7.41 ABG pCO2 43.5 ABG pO2 75.4 L ABG HCO3 26.6 H ABG O2 Saturation 95.2 ABG Base Excess 1.6 FiO2 ROOM AIR Sodium 144.8 Potassium 3.8 Chloride 110 H Carbon Dioxide 26 Anion Gap 9 BUN 10 Creatinine 0.66 Est GFR ( Amer) > 60 Est GFR (Non-Af Amer) > 60 Glucose 100 Calcium 9.2 Phosphorus 3.2 Magnesium 2.1 12/18/17 07:45 Tracheal Aspirate Gram Stain - Final 12/18/17 07:45 Tracheal Aspirate Sputum Culture - Final Streptococcus Pneumoniae Klebsiella Oxytoca C.albicans/C.dubliniensis Normal Aiyana Absent 12/16/17 12/16/17 12/16/17 06:39 10:54 17:00 Creatine Kinase 2960 H 32479 H 35928 H Troponin I 12/17/17 12/18/17 09:41 04:20 Creatine Kinase 4483 H Troponin I < 0.012 Impressions: Head CT 12/19/17 00:00 IMPRESSION: NORMAL BRAIN CT WITH CONTRAST. EVIDENCE OF ACUTE STROKE: NO. Chest X-Ray 12/23/17 06:00 IMPRESSION: HEART ENLARGED WITHOUT FAILURE. NO OTHER SIGNIFICANT RADIOGRAPHIC FINDING IN THE CHEST. Assessment & Plan - Diagnosis (1) Acute respiratory failure Qualifiers: Respiratory failure complication: hypoxia and hypercapnia Qualified Code(s) : J96.01 - Acute respiratory failure with hypoxia; J96.02 - Acute respiratory failure with hypercapnia; J96.02 - Acute respiratory failure with hypercapnia; J96.02 - Acute respiratory failure with hypercapnia Is this a current diagnosis for this admission?: Yes Plan: Resolved. If he is doing well we may be able to discharge him home tomorrow. (2) Alcohol dependence with withdrawal Qualifiers: Complication of substance-induced condition: with delirium Qualified Code(s ): F10.231 - Alcohol dependence with withdrawal delirium Is this a current diagnosis for this admission?: Yes Plan: Withdrawal has resolved (3) Polysubstance overdose Qualifiers: Encounter type: initial encounter Injury intent: undetermined intent Qualified Code(s): T50.904A - Poisoning by unspecified drugs, medicaments and biological substances, undetermined, initial encounter Is this a current diagnosis for this admission?: Yes Plan: We had a long talk about his extracurricular activities and has polysubstance abuse. I encouraged abstinence. (4) Rhabdomyolysis Is this a current diagnosis for this admission?: Yes Plan: Resolved - Time Time Spent with patient: 25-34 minutes
--- NOTE | 2017-12-23 17:45 | PDOC PROGRESS REPORT ---
Subjective Progress Note for:: 12/19/17 Subjective:: Patient very combative during sedation vacation did not respond to commands Reason For Visit: ACUTE RESP FAILURE, ENCEPHALOPATHY POLYSUBSTANCE Physical Exam Vital Signs: Temp Pulse Resp BP Pulse Ox 97.7 F 57 L 12 107/55 L 96 12/19/17 07:46 12/19/17 07:49 12/19/17 07:46 12/19/17 07:46 12/19/17 07:46 Intake & Output 12/18/17 12/19/17 12/20/17 06:59 06:59 06:59 Intake Total 6047 3887 Output Total 3810 7290 575 Balance 2237 187 -575 Weight 83.6 kg 82.9 kg General appearance: PRESENT: no acute distress, disheveled, well-developed, well -nourished. ABSENT: cooperative Head exam: PRESENT: atraumatic, normocephalic Eye exam: PRESENT: conjunctiva pale. ABSENT: nystagmus, periorbital swelling, scleral icterus Mouth exam: PRESENT: dry mucosa, neck supple, tongue midline, other - ET tube in place Neck exam: ABSENT: carotid bruit, JVD, lymphadenopathy, thyromegaly, tracheal deviation, tracheostomy Respiratory exam: PRESENT: crackles, decreased breath sounds, prolonged expiratory phas, rhonchi, unlabored. ABSENT: retraction, stridor Cardiovascular exam: PRESENT: RRR, +S1, +S2 Pulses: PRESENT: normal radial pulses GI/Abdominal exam: PRESENT: hypoactive bowel sounds, soft Gentrourinary exam: PRESENT: indwelling catheter Extremities exam: ABSENT: clubbing, joint swelling, pedal edema Musculoskeletal exam: ABSENT: ambulatory, deformity, dislocation Neurological exam: ABSENT: awake Skin exam: PRESENT: dry, warm Results Laboratory Results: 12/19/17 04:04 12/19/17 04:04 12/19/17 12/19/17 12/19/17 04:04 04:04 05:30 WBC 5.9 RBC 4.34 L Hgb 13.6 Hct 40.0 MCV 92 MCH 31.4 MCHC 34.0 RDW 13.1 Plt Count 180 Seg Neutrophils % 59.2 Lymphocytes % 27.9 Monocytes % 9.4 Eosinophils % 3.0 Basophils % 0.5 Absolute Neutrophils 3.5 Absolute Lymphocytes 1.6 Absolute Monocytes 0.6 Absolute Eosinophils 0.2 Absolute Basophils 0.0 Carbonic Acid 1.11 HCO3/H2CO3 Ratio 21:1 ABG pH 7.43 ABG pCO2 36.8 ABG pO2 92.4 ABG HCO3 24.0 ABG O2 Saturation 97.3 ABG Base Excess 0 FiO2 21% Sodium 145.5 H Potassium 3.9 Chloride 115 H Carbon Dioxide 25 Anion Gap 6 BUN 5 L Creatinine 0.72 Est GFR ( Amer) > 60 Est GFR (Non-Af Amer) > 60 Glucose 100 Calcium 8.5 Phosphorus 3.4 Magnesium 2.1 Triglycerides 154 H 12/16/17 12/16/17 12/16/17 06:39 10:54 17:00 Creatine Kinase 2960 H 75812 H 10274 H Troponin I 12/17/17 12/18/17 09:41 04:20 Creatine Kinase 4483 H Troponin I < 0.012 Impressions: Head CT 12/16/17 01:35 IMPRESSION: No acute findings. Chest X-Ray 12/19/17 06:00 IMPRESSION: NO ACUTE RADIOGRAPHIC FINDING IN THE CHEST. Assessment & Plan - Diagnosis (1) Acute respiratory failure Qualifiers: Respiratory failure complication: hypoxia and hypercapnia Qualified Code(s) : J96.01 - Acute respiratory failure with hypoxia; J96.02 - Acute respiratory failure with hypercapnia; J96.02 - Acute respiratory failure with hypercapnia; J96.02 - Acute respiratory failure with hypercapnia Is this a current diagnosis for this admission?: Yes Plan: Still uncertain as to whether patient can protect airway (2) Alcohol dependence with withdrawal Qualifiers: Complication of substance-induced condition: with delirium Qualified Code(s ): F10.231 - Alcohol dependence with withdrawal delirium Is this a current diagnosis for this admission?: Yes Plan: DT precautions (3) Polysubstance overdose Qualifiers: Encounter type: initial encounter Injury intent: undetermined intent Qualified Code(s): T50.904A - Poisoning by unspecified drugs, medicaments and biological substances, undetermined, initial encounter Is this a current diagnosis for this admission?: Yes (4) Rhabdomyolysis Is this a current diagnosis for this admission?: Yes Plan: Improving - Time Total Critical Time (Minutes): 45
--- NOTE | 2017-12-23 17:50 | PDOC PROGRESS REPORT ---
Subjective Progress Note for:: 12/20/17 Subjective:: Patient combative during sedation vacation Reason For Visit: ACUTE RESP FAILURE, ENCEPHALOPATHY POLYSUBSTANCE Physical Exam Vital Signs: Temp Pulse Resp BP Pulse Ox 98.1 F 50 L 12 121/87 H 95 12/20/17 07:55 12/20/17 08:00 12/20/17 07:55 12/20/17 07:55 12/20/17 07:55 Intake & Output 12/19/17 12/20/17 12/21/17 06:59 06:59 06:59 Intake Total 3887 3172 Output Total 3700 5000 420 Balance 387 -4338 -442 Weight 82.9 kg 81.2 kg General appearance: PRESENT: no acute distress, disheveled, well-developed, well -nourished Head exam: PRESENT: atraumatic, normocephalic Eye exam: PRESENT: conjunctiva pale. ABSENT: nystagmus, periorbital swelling, scleral icterus Mouth exam: PRESENT: dry mucosa, neck supple, tongue midline, other - ET tube in place Neck exam: ABSENT: carotid bruit, JVD, lymphadenopathy, thyromegaly, tracheal deviation, tracheostomy Respiratory exam: PRESENT: crackles, decreased breath sounds, prolonged expiratory phas, rhonchi, unlabored. ABSENT: retraction, stridor Cardiovascular exam: PRESENT: bradycardia, RRR, +S1, +S2 Pulses: PRESENT: normal radial pulses GI/Abdominal exam: PRESENT: hypoactive bowel sounds, soft Gentrourinary exam: PRESENT: indwelling catheter Extremities exam: ABSENT: calf tenderness, clubbing, joint swelling Musculoskeletal exam: PRESENT: ambulatory, deformity Neurological exam: ABSENT: alert, awake Skin exam: PRESENT: dry, warm Results Laboratory Results: 12/20/17 04:02 12/20/17 04:02 12/20/17 12/20/17 04:02 04:02 WBC 5.1 RBC 4.52 Hgb 14.0 Hct 41.6 MCV 92 MCH 30.9 MCHC 33.6 RDW 13.0 Plt Count 197 Seg Neutrophils % 56.1 Lymphocytes % 30.8 Monocytes % 8.8 Eosinophils % 3.8 Basophils % 0.5 Absolute Neutrophils 2.9 Absolute Lymphocytes 1.6 Absolute Monocytes 0.4 Absolute Eosinophils 0.2 Absolute Basophils 0.0 Sodium 145.7 H Potassium 3.7 Chloride 113 H Carbon Dioxide 28 Anion Gap 5 BUN 4 L Creatinine 0.67 Est GFR ( Amer) > 60 Est GFR (Non-Af Amer) > 60 Glucose 98 Calcium 8.7 Magnesium 2.0 12/16/17 12/16/17 12/16/17 06:39 10:54 17:00 Creatine Kinase 2960 H 26961 H 99988 H Troponin I 12/17/17 12/18/17 09:41 04:20 Creatine Kinase 4483 H Troponin I < 0.012 Impressions: Head CT 12/19/17 00:00 IMPRESSION: NORMAL BRAIN CT WITH CONTRAST. EVIDENCE OF ACUTE STROKE: NO. Chest X-Ray 12/20/17 06:00 IMPRESSION: No focal infiltrates Endotracheal tube is high, tip is at the level of the clavicles 8 cm above the monie. This report was called to the patient's ICU nurse Assessment & Plan - Diagnosis (1) Acute respiratory failure Qualifiers: Respiratory failure complication: hypoxia and hypercapnia Qualified Code(s) : J96.01 - Acute respiratory failure with hypoxia; J96.02 - Acute respiratory failure with hypercapnia; J96.02 - Acute respiratory failure with hypercapnia; J96.02 - Acute respiratory failure with hypercapnia Is this a current diagnosis for this admission?: Yes Plan: Respiratory rate, minute ventilation, FiO2, airway pressures all suggest successful extubation however patient's mental status as well as the fact that he has prolonged periods of apnea raise concerns about successful extubation (2) Alcohol dependence with withdrawal Qualifiers: Complication of substance-induced condition: with delirium Qualified Code(s ): F10.231 - Alcohol dependence with withdrawal delirium Is this a current diagnosis for this admission?: Yes Plan: DT precautions (3) Polysubstance overdose Qualifiers: Encounter type: initial encounter Injury intent: undetermined intent Qualified Code(s): T50.904A - Poisoning by unspecified drugs, medicaments and biological substances, undetermined, initial encounter Is this a current diagnosis for this admission?: Yes (4) Rhabdomyolysis Is this a current diagnosis for this admission?: Yes Plan: Improving - Time Total Critical Time (Minutes): 45
--- NOTE | 2017-12-23 17:56 | PDOC PROGRESS REPORT ---
Subjective Progress Note for:: 12/21/17 Subjective:: Patient Lethargic during sedation vacation Reason For Visit: ACUTE RESP FAILURE, ENCEPHALOPATHY POLYSUBSTANCE Physical Exam Vital Signs: Temp Pulse Resp BP Pulse Ox 98.2 F 82 12 129/86 H 93 12/21/17 06:00 12/20/17 20:00 12/21/17 06:13 12/21/17 06:13 12/21/17 08:52 Intake & Output 12/20/17 12/21/17 12/22/17 06:59 06:59 06:59 Intake Total 3172 3048 Output Total 5000 3450 Balance -1828 -402 Weight 81.2 kg 79.7 kg General appearance: PRESENT: no acute distress, disheveled, well-developed, well -nourished Head exam: PRESENT: atraumatic, normocephalic Eye exam: PRESENT: conjunctiva pale, other - Right lid lag. ABSENT: nystagmus, periorbital swelling, scleral icterus Mouth exam: PRESENT: dry mucosa, neck supple, tongue midline, other - ET tube in place Neck exam: ABSENT: carotid bruit, JVD, lymphadenopathy, thyromegaly, tracheal deviation, tracheostomy Respiratory exam: PRESENT: decreased breath sounds, prolonged expiratory phas, rhonchi, unlabored. ABSENT: stridor Cardiovascular exam: PRESENT: bradycardia, RRR, +S1, +S2 GI/Abdominal exam: PRESENT: hypoactive bowel sounds, soft Gentrourinary exam: PRESENT: indwelling catheter Extremities exam: PRESENT: clubbing. ABSENT: joint swelling Musculoskeletal exam: PRESENT: deformity, dislocation Neurological exam: PRESENT: awake, oriented to person Psychiatric exam: PRESENT: flat affect Focused psych exam: PRESENT: internal stimuli Skin exam: PRESENT: dry, warm Results Laboratory Results: 12/20/17 04:02 12/20/17 04:02 12/16/17 12/16/17 12/16/17 06:39 10:54 17:00 Creatine Kinase 2960 H 87758 H 27533 H Troponin I 12/17/17 12/18/17 09:41 04:20 Creatine Kinase 4483 H Troponin I < 0.012 Impressions: Head CT 12/19/17 00:00 IMPRESSION: NORMAL BRAIN CT WITH CONTRAST. EVIDENCE OF ACUTE STROKE: NO. Chest X-Ray 12/20/17 06:00 IMPRESSION: No focal infiltrates Endotracheal tube is high, tip is at the level of the clavicles 8 cm above the monie. This report was called to the patient's ICU nurse Assessment & Plan - Diagnosis (1) Acute respiratory failure Qualifiers: Respiratory failure complication: hypoxia and hypercapnia Qualified Code(s) : J96.01 - Acute respiratory failure with hypoxia; J96.02 - Acute respiratory failure with hypercapnia; J96.02 - Acute respiratory failure with hypercapnia; J96.02 - Acute respiratory failure with hypercapnia Is this a current diagnosis for this admission?: Yes Plan: Primary concern neurological as patient has prolonged episodes episodes of apnea when he is not stimulated (2) Alcohol dependence with withdrawal Qualifiers: Complication of substance-induced condition: with delirium Qualified Code(s ): F10.231 - Alcohol dependence with withdrawal delirium Is this a current diagnosis for this admission?: Yes Plan: DT precautions (3) Polysubstance overdose Qualifiers: Encounter type: initial encounter Injury intent: undetermined intent Qualified Code(s): T50.904A - Poisoning by unspecified drugs, medicaments and biological substances, undetermined, initial encounter Is this a current diagnosis for this admission?: Yes (4) Rhabdomyolysis Is this a current diagnosis for this admission?: Yes Plan: Improving - Time Total Critical Time (Minutes): 45
--- NOTE | 2017-12-23 18:01 | PDOC PROGRESS REPORT ---
Subjective Progress Note for:: 12/22/17 Subjective:: Patient Awake alert during sedation vacation Reason For Visit: ACUTE RESP FAILURE, ENCEPHALOPATHY POLYSUBSTANCE Physical Exam Vital Signs: Temp Pulse Resp BP Pulse Ox 98.4 F 69 14 136/97 H 96 12/22/17 07:51 12/22/17 07:51 12/22/17 07:51 12/22/17 07:51 12/22/17 07:51 Intake & Output 12/21/17 12/22/17 12/23/17 06:59 06:59 06:59 Intake Total 3048 2884 Output Total 3450 1865 875 Balance -402 1019 -875 Weight 79.7 kg 77.2 kg General appearance: PRESENT: cooperative. ABSENT: no acute distress, disheveled Head exam: PRESENT: atraumatic, normocephalic Eye exam: PRESENT: conjunctiva pale, EOMI. ABSENT: nystagmus, periorbital swelling Mouth exam: PRESENT: dry mucosa, neck supple, tongue midline, other Neck exam: ABSENT: carotid bruit, JVD, lymphadenopathy, thyromegaly, tracheal deviation, tracheostomy Respiratory exam: PRESENT: decreased breath sounds, prolonged expiratory phas, rhonchi, unlabored Cardiovascular exam: PRESENT: bradycardia, RRR, +S1, +S2 Pulses: PRESENT: normal radial pulses GI/Abdominal exam: PRESENT: hypoactive bowel sounds, soft Gentrourinary exam: PRESENT: indwelling catheter Extremities exam: ABSENT: calf tenderness, joint swelling Musculoskeletal exam: ABSENT: deformity, dislocation Neurological exam: PRESENT: awake, other - Right leg leg has resolved Psychiatric exam: PRESENT: flat affect Skin exam: PRESENT: dry, warm Results Laboratory Results: 12/22/17 04:17 12/22/17 04:17 12/22/17 12/22/17 12/22/17 04:17 04:17 05:00 WBC 4.9 RBC 4.79 Hgb 14.8 Hct 43.3 MCV 90 MCH 31.0 MCHC 34.3 RDW 13.0 Plt Count 246 Seg Neutrophils % 51.2 Lymphocytes % 32.0 Monocytes % 12.9 Eosinophils % 3.2 Basophils % 0.7 Absolute Neutrophils 2.5 Absolute Lymphocytes 1.6 Absolute Monocytes 0.6 Absolute Eosinophils 0.2 Absolute Basophils 0.0 Carbonic Acid 1.37 H HCO3/H2CO3 Ratio 19:1 ABG pH 7.39 ABG pCO2 45.6 H ABG pO2 83.1 ABG HCO3 27.0 H ABG O2 Saturation 96.1 ABG Base Excess 1.6 FiO2 21% Sodium 144.3 Potassium 3.8 Chloride 109 H Carbon Dioxide 27 Anion Gap 8 BUN 8 Creatinine 0.65 Est GFR ( Amer) > 60 Est GFR (Non-Af Amer) > 60 Glucose 97 Calcium 9.1 Phosphorus 4.4 Magnesium 2.2 Triglycerides 289 H 12/18/17 07:45 Tracheal Aspirate Gram Stain - Final 12/16/17 12/16/17 12/16/17 06:39 10:54 17:00 Creatine Kinase 2960 H 79828 H 89649 H Troponin I 12/17/17 12/18/17 09:41 04:20 Creatine Kinase 4483 H Troponin I < 0.012 Impressions: Head CT 12/19/17 00:00 IMPRESSION: NORMAL BRAIN CT WITH CONTRAST. EVIDENCE OF ACUTE STROKE: NO. Chest X-Ray 12/22/17 06:00 IMPRESSION: 1. Stable appearance of the chest. Assessment & Plan - Diagnosis (1) Acute respiratory failure Qualifiers: Respiratory failure complication: hypoxia and hypercapnia Qualified Code(s) : J96.01 - Acute respiratory failure with hypoxia; J96.02 - Acute respiratory failure with hypercapnia; J96.02 - Acute respiratory failure with hypercapnia; J96.02 - Acute respiratory failure with hypercapnia Is this a current diagnosis for this admission?: Yes Plan: Primary concern neurological as patient has prolonged episodes episodes of apnea when he is not stimulated, He also has transient episodes of bradycardia this time we will cut all his narcotics and sedation by 50% hoping this will decrease his apneic events (2) Alcohol dependence with withdrawal Qualifiers: Complication of substance-induced condition: with delirium Qualified Code(s ): F10.231 - Alcohol dependence with withdrawal delirium Is this a current diagnosis for this admission?: Yes Plan: DT precautions (3) Polysubstance overdose Qualifiers: Encounter type: initial encounter Injury intent: undetermined intent Qualified Code(s): T50.904A - Poisoning by unspecified drugs, medicaments and biological substances, undetermined, initial encounter Is this a current diagnosis for this admission?: Yes (4) Rhabdomyolysis Is this a current diagnosis for this admission?: Yes Plan: Improving - Time Total Critical Time (Minutes): 40
--- NOTE | 2017-12-23 18:03 | PDOC PROGRESS REPORT ---
Subjective Progress Note for:: 12/23/17 Subjective:: Patient became progressively more responsive with less apneic episodes subsequently ordered extubation approximately 14 hours ago this time is been stable Reason For Visit: ACUTE RESP FAILURE, ENCEPHALOPATHY POLYSUBSTANCE Physical Exam Vital Signs: Temp Pulse Resp BP Pulse Ox 99.0 F 74 18 124/74 98 12/23/17 05:09 12/22/17 20:00 12/23/17 06:00 12/23/17 05:50 12/23/17 06:00 Intake & Output 12/22/17 12/23/17 12/24/17 06:59 06:59 06:59 Intake Total 2884 2281 Output Total 1865 3330 Balance 1019 -1049 Weight 77.2 kg 75.8 kg Results Laboratory Results: 12/23/17 04:00 12/23/17 04:00 12/23/17 12/23/17 12/23/17 04:00 04:00 05:12 WBC 8.3 RBC 4.82 Hgb 15.3 Hct 43.8 MCV 91 MCH 31.7 MCHC 34.9 RDW 12.6 Plt Count 262 Seg Neutrophils % 60.6 Lymphocytes % 25.5 Monocytes % 11.7 Eosinophils % 1.6 Basophils % 0.6 Absolute Neutrophils 5.0 Absolute Lymphocytes 2.1 Absolute Monocytes 1.0 Absolute Eosinophils 0.1 Absolute Basophils 0.0 Carbonic Acid 1.31 HCO3/H2CO3 Ratio 20:1 ABG pH 7.41 ABG pCO2 43.5 ABG pO2 75.4 L ABG HCO3 26.6 H ABG O2 Saturation 95.2 ABG Base Excess 1.6 FiO2 ROOM AIR Sodium 144.8 Potassium 3.8 Chloride 110 H Carbon Dioxide 26 Anion Gap 9 BUN 10 Creatinine 0.66 Est GFR ( Amer) > 60 Est GFR (Non-Af Amer) > 60 Glucose 100 Calcium 9.2 Phosphorus 3.2 Magnesium 2.1 12/18/17 07:45 Tracheal Aspirate Gram Stain - Final 12/18/17 07:45 Tracheal Aspirate Sputum Culture - Final Streptococcus Pneumoniae Klebsiella Oxytoca C.albicans/C.dubliniensis Normal Aiyana Absent 12/16/17 12/16/17 12/16/17 06:39 10:54 17:00 Creatine Kinase 2960 H 62981 H 53257 H Troponin I 12/17/17 12/18/17 09:41 04:20 Creatine Kinase 4483 H Troponin I < 0.012 Impressions: Head CT 12/19/17 00:00 IMPRESSION: NORMAL BRAIN CT WITH CONTRAST. EVIDENCE OF ACUTE STROKE: NO. Chest X-Ray 12/23/17 06:00 IMPRESSION: HEART ENLARGED WITHOUT FAILURE. NO OTHER SIGNIFICANT RADIOGRAPHIC FINDING IN THE CHEST. Assessment & Plan - Diagnosis (1) Acute respiratory failure Qualifiers: Respiratory failure complication: hypoxia and hypercapnia Qualified Code(s) : J96.01 - Acute respiratory failure with hypoxia; J96.02 - Acute respiratory failure with hypercapnia; J96.02 - Acute respiratory failure with hypercapnia; J96.02 - Acute respiratory failure with hypercapnia Is this a current diagnosis for this admission?: Yes (2) Alcohol dependence with withdrawal Qualifiers: Complication of substance-induced condition: with delirium Qualified Code(s ): F10.231 - Alcohol dependence with withdrawal delirium Is this a current diagnosis for this admission?: Yes Plan: No evidence for DVT breath at this time (3) Polysubstance overdose Qualifiers: Encounter type: initial encounter Injury intent: undetermined intent Qualified Code(s): T50.904A - Poisoning by unspecified drugs, medicaments and biological substances, undetermined, initial encounter Is this a current diagnosis for this admission?: Yes (4) Rhabdomyolysis Is this a current diagnosis for this admission?: Yes Plan: Resolved - Time Total Critical Time (Minutes): 45
[2017-12-24] MEDS: AMPICILLIN SODIUM/SULBACTAM NA 3 GM in NORMAL SALINE 100 ML IV SCH ×2 (05:10→12:46)
[2017-12-24] MEDS: HEPARIN SOD (PORCINE) 5,000 UNIT/ML 1 ML SYRINGE SUBCUT SCH (05:10)
[2017-12-24] MEDS: PANTOPRAZOLE SODIUM 40 MG VIAL IV SCH (10:20)
--- NOTE | 2017-12-24 13:21 | Progress Note ---
Provider Note Provider Note: Mr Gillespie has been a patient here since 12/16/17 and may return to work December 28, 2017.
[2017-12-24 13:29] VITALS: BP 127/85
--- NOTE | 2017-12-24 17:53 | PDOC DISCHARGE SUMMARY ---
General - Admit/Disc Date/PCP Admission Date/Primary Care Provider: 12/16/17 04:15 NO LOCALMD Discharge Date: 12/24/17 - Discharge Diagnosis (1) Acute respiratory failure Is this a current diagnosis for this admission?: Yes Summary: He was intubated in the emergency department because he was extraordinarily agitated and was not having an effective breathing pattern and was uncertain whether he could protect his airway. After several days he was extubated without incident. (2) Alcohol dependence with withdrawal Is this a current diagnosis for this admission?: Yes Summary: He was on the ventilator through his withdrawal this is now resolved. (3) Polysubstance overdose Is this a current diagnosis for this admission?: Yes Summary: He had many different things positive on his urine drug screen when he came in, and he claims he has no knowledge of anything that happened after he left work on Monday. I had a long talk about his history of polysubstance abuse and importance of abscess going forward from today. (4) Rhabdomyolysis Is this a current diagnosis for this admission?: Yes Summary: This resolved with IV fluids. - Additional Information Resuscitation Status: Full Code Discharge Diet: As Tolerated Discharge Activity: Activity As Tolerated Home Medications: No Home Medications 12/24/17 History of Present Illness History of Present Illness: YAYA WILL is a 32 year old male who was brought in after being found down. The details of exactly what happened are unclear. But it seems that he was with a woman who may have been the person who called EMS. It is unknown whether or not they were doing drugs together, but apparently he had been doing a lot of drugs and drinking. He was given some Narcan and after a few doses became responsive and was extremely combative and was not able to protect his airway and so he was sedated and intubated. Hospital Course Hospital Course: He was left on the ventilator get through the phases of any potential withdrawal. When it came time to extubate him he was somewhat difficult to extubate for a couple of days but as we gradually withdrew all sedatives he came around he was able to be more reasonable and he stopped fighting the ventilator and we were subsequently able to extubate him without difficulty. He denies trying to hurt himself in any way. His labs and his examination were reassuring he discharged home today in good condition. We had a long talk about importance of abstinence and the problems that his polysubstance abuse caused him up at this point in his life. Physical Exam Vital Signs: Temp Pulse Resp BP Pulse Ox 98.2 F 66 16 127/85 H 99 12/24/17 13:21 12/24/17 13:21 12/24/17 13:21 12/24/17 13:21 12/24/17 13:21 Intake & Output 12/23/17 12/24/17 12/25/17 06:59 06:59 06:59 Intake Total 2281 3112 Output Total 3330 9158 Balance -1049 -018 Weight 75.8 kg 75.6 kg General appearance: PRESENT: no acute distress, well-developed, well-nourished Respiratory exam: PRESENT: clear to auscultation dashawn. ABSENT: rales, rhonchi, wheezes Cardiovascular exam: PRESENT: RRR. ABSENT: diastolic murmur, rubs, systolic murmur GI/Abdominal exam: PRESENT: normal bowel sounds, soft. ABSENT: distended, guarding, mass, organolmegaly, rebound, tenderness Extremities exam: PRESENT: full ROM. ABSENT: clubbing, pedal edema Musculoskeletal exam: PRESENT: normal inspection. ABSENT: deformity Neurological exam: PRESENT: alert, oriented to person, oriented to place, oriented to time Results Laboratory Results: 12/23/17 04:00 12/23/17 04:00 12/16/17 12/16/17 12/16/17 06:39 10:54 17:00 Creatine Kinase 2960 H 67659 H 17346 H Troponin I 12/17/17 12/18/17 09:41 04:20 Creatine Kinase 4483 H Troponin I < 0.012 Impressions: Head CT 12/19/17 00:00 IMPRESSION: NORMAL BRAIN CT WITH CONTRAST. EVIDENCE OF ACUTE STROKE: NO. Chest X-Ray 12/23/17 06:00 IMPRESSION: HEART ENLARGED WITHOUT FAILURE. NO OTHER SIGNIFICANT RADIOGRAPHIC FINDING IN THE CHEST. Qualifiers - * PATIENT BEING DISCHARGED WITH ANY OF THE FOLLOWING DIAGNOSIS: No
== END 2017-12-24 15:10 | disposition home or self-care (01) | DRG 917 ==
LOC: ER 01:04 → EH 04:15 → ICU 06:02 → 4S 12-23 21:45
PROVIDERS: ADMIT Internal Medicine; ATTEND Internal Medicine
PROC: 0BH17EZ Insertion of Endotracheal Airway into Trachea, Via Natural or Artificial Opening (ICD-10-PCS; principal; 2017-12-16)
PROC: 5A1955Z Respiratory Ventilation, Greater than 96 Consecutive Hours (ICD-10-PCS; 2017-12-16)
DX: T50.904A Poisoning by unspecified drugs, medicaments and biological substances, undetermined, initial encounter (principal); J96.01 Acute respiratory failure with hypoxia; J96.02 Acute respiratory failure with hypercapnia; G93.40 Encephalopathy, unspecified; F10.231 Alcohol dependence with withdrawal delirium; M62.82 Rhabdomyolysis; E87.2 Acidosis; F32.9 Major depressive disorder, single episode, unspecified; Z79.899 Other long term (current) drug therapy
CPT/HCPCS: 36415; 70450; 70460; 71045; 80048; 80053; 80074; 80307; 81001; 81270; 82550; 82803; 82962; 83605; 83690; 83735; 84100; 84478; 84484; 85025; 86701; 87070; 87077; 87186; 87205; 87491; 87591; 93005; 93010; 94002; 94003; 94799; 96372; 96374; 96375; 99291; J0295; J1200; J1630; J1644; J2060; J2250; J2704; J3010; J3480; J3490; J7120; S0164